=== PATIENT | female | born 1950 | race Caucasian/White ===

== ENCOUNTER 2017-08-03 17:18 | Inpatient (IN) | payer BC, OTHER ==
[~2017-08-03] VITALS: Ht 157.5 cm; Wt 59.4 kg
[2017-08-03 17:21] VITALS: BP 161/85
[2017-08-03] MEDS ORDERED: ALBUTEROL SULFATE/IPRATROPIU 3 ML SOL IH ONE ×4 (17:35→19:20)
--- NOTE | 2017-08-03 17:50 | NUR ---
67/F BIB FAMILY C/O COUGH & INTERMITTENT CHEST PAIN/SOB WITH SYNCOPAL EPISODE TODAY. DENIES TRAUMA. SPEAKING 1-2 WORD SENTENCES. CAP REFILL >3, NAIL BEDS CYANOTIC IN COLOR. PT TACHYPNIC, LS-WILLA WHEEZES. CHRONIC SMOKER X 30 YRS 1/2 DAY. DENIES N/V/D; SKIN IS PINK/WARM/DRY; AAOX4 WITH EVEN AND STEADY GAIT; LUNGS CLEAR BL; PATIENT STATES PAIN OF 5/10 AT THIS TIME.
[2017-08-03] MEDS ORDERED: methylPREDNISolone SS 125 MG in WATER STERILE 2 ML IV ONE (18:05)
[2017-08-03] MEDS ORDERED: methylPREDNISolone SS 125 MG/2 ML VIAL ONE (18:36)
--- NOTE | 2017-08-03 18:43 | NUR ---
[facility]incess nam in [facility] - 08/03/17 at 1850 by MED1 PT AMB WITH W/C TO BED 4.
[2017-08-03 18:45] LABS: BASOPHILS # (AUTO) 0.3 K/uL (0.00-0.22); BASOPHILS % (AUTO) 2.4 % (0.0-2.0); EOSINOPHILS % (AUTO) 0.3 % (0.0-4.0); HEMATOCRIT 45.1 % (36-48); HEMOGLOBIN 14.9 g/dL (12.0-16.0); LYMPHOCYTES # (AUTO) 0.9 K/uL (2.5-16.5); LYMPHOCYTES % (AUTO) 6.1 % (20.5-51.1); MEAN CORPUSCULAR HEMOGLOBIN 29 pg (27-31); MEAN CORPUSCULAR HGB CONC 33 g/dL (33-37); MEAN CORPUSCULAR VOLUME 88.2 fL (80-94); MONOCYTES # (AUTO) 0.4 K/uL (0.8-1.0); MONOCYTES % (AUTO) 2.5 % (1.7-9.3); NEUTROPHILS # (AUTO) 12.9 K/uL (1.8-7.7); NEUTROPHILS % (AUTO) 88.7 % (42.2-75.2); PLATELET COUNT (AUTO) 380 K/uL (140-450); RED BLOOD CELL COUNT(AUTO) 5.12 MIL/uL (4.20-5.40); RED CELL DISTRIBUTION WIDTH 13.2 % (11.6-13.7); WHITE BLOOD COUNT (AUTO) 14.5 K/uL (4.8-10.8)
[2017-08-03] MEDS ORDERED: ONDANSETRON 4 MG/2 ML VIAL IVP ONE (18:45)
--- NOTE | 2017-08-03 18:59 | NUR ---
PT TAKEN TO X [facility] VIA W/C ACCOMPANIED BY [employer].
[2017-08-03 19:00] LABS: PROTHROMBIN TIME 10.6 secs (10.8-13.4)
--- NOTE | 2017-08-03 19:09 | NUR ---
Pt report given to TRACI WANG. Transfer of care at this time.
[2017-08-03 19:11] LABS: ANION GAP 17.3 (8-16); CARBON DIOXIDE 24.6 mmol/L (21-32); POTASSIUM 3.9 mmol/L (3.5-5.1)
--- NOTE | 2017-08-03 19:16 | NUR ---
Critical Lab: Lactic 2.3. Dr Silva notified immediately.
[2017-08-03] MEDS ORDERED: ALBUTEROL 0.083% 2.5 MG/3 ML NEBU INH ONE (19:20)
--- NOTE | 2017-08-03 19:21 | NUR ---
Pt ambulated to bed 12
[2017-08-03 19:22] LABS: ALBUMIN 3.9 g/dL (3.4-5.0); TOTAL BILIRUBIN 0.7 mg/dL (0.0-1.0)
--- NOTE | 2017-08-03 19:31 | NUR ---
REPORT RECIEVED FROM FELIPE AVILES
[2017-08-03] MEDS ORDERED: ACETAMINOPHEN 325 MG TAB PO PRN (20:25)
[2017-08-03] MEDS ORDERED: LEVOFLOXACIN 750 MG/D5W PREMIX 150 ML IV ONE ×2 (20:30→21:43)
--- NOTE | 2017-08-03 20:58 | NUR ---
Patient will be admitted to care of DR MARQUEZ. Admited to TELE. Will go to room 120A. Belongings list completed. Report to FELIPE BLISS.
[2017-08-03 21:00] VITALS: BP 142/73
--- NOTE | 2017-08-03 21:05 | NUR ---
ADMITTED PATIENT TO THE TELE UNIT, PATIENT AWAKE ALERT ORIENTED X4, NO S/S OF DISTRESS NOTED, RESPIRATION EVEN AND UNLABORED, INTERMITTENT COUGHING STILL NOTED, O2SAT 93% ON ROOM AIR. IV PATENT AND INTACT. TELE MONITOR PLACED ON PATIENT, PLAN OF CARE DISCUSSED, PATIENT VERBALIZED UNDERSTANDING, CALL LIGHT WITHIN REACH, SAFETY MEASURE ENSURED, WILL CONTINUE TO MONITOR.
[2017-08-03] MEDS ORDERED: CLINDAMYCIN 600 MG/4 ML VIAL ONE (21:42)
[2017-08-03] MEDS: DOCUSATE SODIUM 100 MG GELCAP PO SCH (21:46)
[2017-08-03 21:47] LABS: CHOL/HDL RATIO 2.9 (1-4.5); MAGNESIUM 1.9 mg/dL (1.8-2.4); PHOSPHORUS 3.2 mg/dL (2.5-4.9); THYROID STIMULATING HORMONE 1.22 uIU/mL (0.34-3.74)
[2017-08-03] MEDS: CLINDAMYCIN 600 MG in DEXTROSE 5% 50 ML IV SCH (21:47)
--- NOTE | 2017-08-03 22:01 | NUR ---
INFORMED THE PATIENT THAT URINE SPECIMEN NEEDED AND SPECIMEN CUP IS PLACED ON THE BEDSIDE TABLE. PATIENT VERBALIZED UNDERSTANDING.
[2017-08-03] MEDS: NACL 0.9% 1,000 ML IV SCH (23:46)
[2017-08-04] VITALS: BP 148/76
--- NOTE | 2017-08-04 00:19 | NUR ---
INFORMED THE PATIENT THAT SPUTUM SPECIMEN NEEDED. PATIENT VERBALIZED UNDERSTANDING AND STATED," LEAVE ME THE CUP."
--- NOTE | 2017-08-04 02:25 | NUR ---
URINE COLLECTED AND SENT TO THE LAB. PATIENT IS SLEEPING, RESPIRATION EVEN AND UNLABORED, CALL LIGHT WITHIN REACH, SAFETY MEASURE ENSURED, WILL CONTINUE TO MONITOR.
[2017-08-04 02:45] LABS: APPEARANCE,URINE CLEAR (CLEAR); BILIRUBIN,URINE NEGATIVE (NEGATIVE); BLOOD, URINE 3+ (NEGATIVE); COLOR,URINE YELLOW (YELLOW); LEUKOCYTE ESTERASE ,URINE NEGATIVE (NEGATIVE); NITRITE, URINE NEGATIVE (NEGATIVE); PH,URINE 5.5 (5.0-9.0); UGLUCOSE NEGATIVE (NEGATIVE)
[2017-08-04 02:52] LABS: BARBITURATE, URINE NEG. ng/ml (NEG <=200); BENZODIAZEPINE, URINE NEG. ng/mL (NEG <=200); CANNABINOID, URINE NEG. ng/mL (NEG <=50); COCAINE, URINE NEG. ng/mL (NEG <=300); OPIATE, URINE NEG. ng/mL (NEG <=2000); PHENCYCLIDINE SCREEN,URINE NEG. ng/mL (NEG <=25)
[2017-08-04 03:08] LABS: RBC,URINE 3-10 (FEW) /HPF (0-5); WBC,URINE 0-5 (RARE) /HPF (0-5)
[2017-08-04 04:00] VITALS: BP 124/66
[2017-08-04] MEDS ORDERED: CLINDAMYCIN 600 MG/4 ML VIAL ONE (04:07)
[2017-08-04] MEDS: CLINDAMYCIN 600 MG in DEXTROSE 5% 50 ML IV SCH ×3 (04:14→20:51)
[2017-08-04] MEDS: methylPREDNISolone SS 125 MG/2 ML VIAL IVP SCH ×3 (04:15→20:50)
--- NOTE | 2017-08-04 04:40 | NUR ---
SPUTUM COLLECTED, AND SENT TO THE LAB. DUE MEDICATION GIVEN, PATIENT TOLERATED WELL. NO S/S OF DISTRESS NOTED, WILL CONTINUE TO MONITOR.
[2017-08-04] MEDS: ALBUTEROL SULFATE/IPRATROPIU 3 ML SOL IH SCH ×3 (06:49→19:59)
--- NOTE | 2017-08-04 07:00 | NUR ---
PATIENT AWAKE AND ALERT. SITTING UP IN BED. SCHEDULED TX ADMINISTERED. PT TOLERATED WELL. NO ADVERSE SIDE EFFECTS. INTERMITTENT, PRODUCTIVE COUGH. OTHERWISE NO RESPIRATORY DISTRESS NOTED. PRESENTS WITH WHEEZES. AERATION IMPROVED POST TX. O2 SAT 100% ON ROOM AIR. WILL CONTINUE TO MONITOR.
--- NOTE | 2017-08-04 07:15 | NUR ---
ENDORSED PLAN OF CARE TO DAY SHIFT RN. PATIENT IS IN STABLE CONDITION.
[2017-08-04 07:18] LABS: BASOPHILS # (AUTO) 0.1 K/uL (0.00-0.22); EOSINOPHILS % (AUTO) 0.1 % (0.0-4.0); HEMATOCRIT 39.6 % (36-48); HEMOGLOBIN 13.1 g/dL (12.0-16.0); LYMPHOCYTES # (AUTO) 0.4 K/uL (2.5-16.5); LYMPHOCYTES % (AUTO) 3.7 % (20.5-51.1); MEAN CORPUSCULAR HEMOGLOBIN 29 pg (27-31); MEAN CORPUSCULAR HGB CONC 33 g/dL (33-37); MEAN CORPUSCULAR VOLUME 88.2 fL (80-94); MONOCYTES # (AUTO) 0.1 K/uL (0.8-1.0); MONOCYTES % (AUTO) 0.6 % (1.7-9.3); NEUTROPHILS # (AUTO) 10.2 K/uL (1.8-7.7); NEUTROPHILS % (AUTO) 94.6 % (42.2-75.2); PLATELET COUNT (AUTO) 359 K/uL (140-450); RED BLOOD CELL COUNT(AUTO) 4.49 MIL/uL (4.20-5.40); RED CELL DISTRIBUTION WIDTH 12.9 % (11.6-13.7); WHITE BLOOD COUNT (AUTO) 10.8 K/uL (4.8-10.8)
--- NOTE | 2017-08-04 07:20 | NUR ---
RECEIVED BEDSIDE REPORT FROM REPORT PROGRAMMER NURSE. PATIENT IS AWAKE, ALERT AND ORIENTEDX4. NO SIGNS OF RESP DISTRESS ON ROOM AIR. SKIN IS INTACT. IV ON L HAND 24G INFUSING NS AT 125ML/HR. IV IS CLEAN, DRY AND INTACT. TELE MONITOR IN PLACE. FALL PRECAUTIONS IN PLACE. ALLERGY BAND IN PLACE. BED IN LOW POSITION. CALL LIGHT WITHIN REACH, WILL CONTINUE TO MONITOR PATIENT.
[2017-08-04 07:24] LABS: MAGNESIUM 1.8 mg/dL (1.8-2.4); PHOSPHORUS 3.2 mg/dL (2.5-4.9)
[2017-08-04 07:29] LABS: ANION GAP 13.3 (8-16); CARBON DIOXIDE 26.4 mmol/L (21-32); POTASSIUM 3.7 mmol/L (3.5-5.1)
[2017-08-04 08:00] VITALS: BP 133/58
[2017-08-04] MEDS: NACL 0.9% 1,000 ML IV SCH ×3 (08:24→21:58)
[2017-08-04] MEDS: LACTOBACILLUS RHAMNOSUS GG 1 EACH CAP PO SCH (08:33)
[2017-08-04] MEDS: ECOTRIN 81 MG TABEC PO SCH (08:33)
[2017-08-04] MEDS: METOPROLOL 25 MG TAB PO SCH ×2 (08:34→20:50)
[2017-08-04] MEDS: LISINOPRIL 5 MG TAB PO SCH (08:35)
[2017-08-04] MEDS: DOCUSATE SODIUM 100 MG GELCAP PO SCH ×2 (08:40→20:50)
--- NOTE | 2017-08-04 08:40 | NUR ---
ADMINISTERED MORNING MEDS. PATIENT TOLERATED MEDS WELL. NO COMPLAINTS AT THIS TIME. BED IN LOW POSITION. CALL LIGHT WITHIN REACH. WILL CONTINUE TO MONITOR PATIENT.
--- NOTE | 2017-08-04 10:09 | NUR ---
PATIENT HAS BEEN SCREENED AND CATEGORIZED LOW NUTRITION RISK. PATIENT WILL BE SEEN WITHIN 7 DAYS OF ADMISSION. 08/11/[address] Addendum: 08/04/17 at [address] PATIENT HAS BEEN RESCREENED AND RECATEGORIZED HIGH NUTRITION RISK. PATIENT WILL BE SEEN WITHIN 1-2 DAYS OF ADMISSION. 08/04/17 - 08/05/[address]
--- NOTE | 2017-08-04 11:00 | NUR ---
PATIENT IS AWAKE AND ALERT AND ORIENTEDX4. NO SIGNS OF DISTRESS ON ROOM AIR. NO COMPLAINTS AT THIS TIME. BED IN LOW POSITION. CALL LIGHT WITHIN REACH. WILL CONTINUE TO MONITOR PATIENT.
[2017-08-04 12:00] VITALS: BP 140/68
--- NOTE | 2017-08-04 12:16 | NUR ---
CALLED [facility] AND LEFT A MESSAGE. PATIENT HAS HAD MULTIPLE GASTRIC SURGERIES AND IS VERY SPECIFIC ABOUT HER FOOD. WILL AWAIT A CALL BACK. PATIENT IS REQUESTING PLAIN CHICKEN AND RICE WITH A PEANUT BUTTER SANDWICH.
--- NOTE | 2017-08-04 12:32 | NUR ---
ADMINISTERED MEDS ORDERED. PATIENT TOLERATED WELL. IV SITE IS CLEAN, DRY AND INTACT. NO COMPLAINTS AT THIS TIME. BED IN LOW POSITION. CALL LIGHT WITHIN REACH. WILL CONTINUE TO MONITOR PATIENT.
--- NOTE | 2017-08-04 13:34 | NUR ---
PATIENT RECEIVING BREATHING TX. WILL CONTINUE TO MONITOR PATIENT.
--- NOTE | 2017-08-04 13:34 | NUR ---
PATIENT AWAKE, RESTING IN BED. SCHEDULED BREATHING TX ADMINISTERED. TOLERATED TX WELL. NO ADVERSE SIDE EFFECTS. NO RESPIRATORY DISTRESS NOTED AT THIS TIME. WILL CONTINUE TO MONITOR.
--- NOTE | 2017-08-04 15:03 | NUR ---
PATIENT IS WATCHING TV SITTING IN BED. COUGHING AND VOMIT SOME OF HER LUNCH. PATIENT IS ALERT AND ORIENTEDX4. WITH NO SIGNS OF RESP DISTRESS ON ROOM AIR. BED IN LOW POSITION. CALL LIGHT WITHIN REACH,. WILL CONTINUE TO MONITOR PATIENT.
[2017-08-04 16:00] VITALS: BP 132/56
[2017-08-04] MEDS: guaiFENesin DM 200/20 MG-10 ML 10 ML UDC PO PRN (16:32)
--- NOTE | 2017-08-04 16:35 | NUR ---
ADMINISTERED PRN COUGH MEDS. PATIENT HAS NO COMPLAINTS AT THIS TIME. SITTING ON BED WITH NO SIGNS OF RESP DISTRESS ON ROOM AIR. BED IN LOW POSITION. CALL LIGHT WITHIN REACH. WILL CONTINUE TO MONITOR PATIENT.
--- NOTE | 2017-08-04 18:16 | NUR ---
FAMILY AT BED SIDE. PATIENT HAS NO COMPLAINTS AT THIS TIME. BED IN LOW POSITION. CALL LIGHT WITHIN REACH. WILL CONTINUE TO MONITOR THE PATIENT.
--- NOTE | 2017-08-04 19:10 | NUR ---
RECEIVED PATIENT REPORT AT BEDSIDE. PATIENT AWAKE, ALERT AND ORIENTED. NO S/S OF DISTRESS. PATIENT ON ROOM AIR. NO SOB AT THIS TIME. IV LINE NOTED TO THE RIGHT HAND WITH IVF INFUSING WELL. PATIENT ON TELE MONITORING. BED LOWERED WITH CALL LIGHT WITHIN REACH. WILL CONTINUE TO MONITOR
--- NOTE | 2017-08-04 19:14 | NUR ---
GAVE BEDSIDE REPORT TO STAMP PRESSER NURSE. ENDORSED PATIENT IN STABLE CONDITION.
[2017-08-04 20:00] VITALS: BP 128/56
[2017-08-05] VITALS: BP 103/54
[2017-08-05] MEDS: guaiFENesin DM 200/20 MG-10 ML 10 ML UDC PO PRN ×4 (00:11→19:55)
--- NOTE | 2017-08-05 02:11 | NUR ---
PATIENT ASLEEP IN BED. NO S/S OF DISTRESS NOTED
[2017-08-05 04:00] VITALS: BP 107/50
--- NOTE | 2017-08-05 04:00 | NUR ---
PATIENT ASLEEP IN BED. S/S OF DISTRESS
[2017-08-05] MEDS: methylPREDNISolone SS 40 MG/ML VIAL IVP SCH ×3 (05:01→21:17)
[2017-08-05] MEDS: CLINDAMYCIN 600 MG in DEXTROSE 5% 50 ML IV SCH ×3 (05:02→21:16)
[2017-08-05] MEDS: ALBUTEROL SULFATE/IPRATROPIU 3 ML SOL IH SCH ×3 (05:16→19:56)
[2017-08-05] MEDS ORDERED: MAGNESIUM CITRATE 300 ML BTL PO ONE (05:20)
[2017-08-05] MEDS ORDERED: SODIUM PHOSPHATE 118 ML ENEM RC PRN (05:20)
[2017-08-05] MEDS: ALBUTEROL SULFATE/IPRATROPIU 3 ML SOL IH PRN ×2 (06:43→16:37)
--- NOTE | 2017-08-05 06:56 | NUR ---
PATIENT AWAKE, RESTING IN BED. SCHEDULED BREATHING TX GIVEN. PATIENT TOLERATED TX WELL. NO ADVERSE SIDE EFFECTS. WILL CONTINUE TO MONITOR.
--- NOTE | 2017-08-05 07:24 | NUR ---
PATIENT REPORT GIVEN AT BEDSIDE. PATIENT ENDORSED IN STABLE CONDITION
--- NOTE | 2017-08-05 07:27 | NUR ---
RECEIVED BEDSIDE REPORT FROM PROFESSOR CRIMINAL JUSTICE NURSE. PATIENT IS AWAKE. ALERT AND ORIENTED X4. NO SIGNS OF RESP DISTRESS ON ROOM AIR. IV ON L HAND 24 G INFUSING NS AT 125ML/HR. , IV IS CLEAN, DRY AND INTACT. SKIN IS INTACT. MAG CITRATE AT BEDSIDE, PATIENT STILL DRINKING IT. WILL AWAIT IF IT WORKS FOR HER, IF NOT WILL ADMINISTER PRN FLEET ENEMA. ALLERGY BAND IN PLACE. TELE IN PLACE. BED IN LOW POSITION. CALL LIGHT WITHIN REACH, WILL CONTINUE TO MONITOR THE PATIENT.
[2017-08-05 08:00] VITALS: BP 132/63
--- NOTE | 2017-08-05 08:00 | NUR ---
PATIENT NOW ON NC AT 2L PER DOCTORS ORDER TO TITRATE OXYGEN FOR O2SAT GREATER THAN 92%. WILL CONTINUE TO MONITOR THE PATIENT.
[2017-08-05] MEDS: NACL 0.9% 1,000 ML IV SCH ×3 (08:55→23:30)
[2017-08-05] MEDS: LACTOBACILLUS RHAMNOSUS GG 1 EACH CAP PO SCH (08:55)
[2017-08-05] MEDS: ECOTRIN 81 MG TABEC PO SCH (08:56)
[2017-08-05] MEDS: METOPROLOL 25 MG TAB PO SCH ×2 (08:57→21:17)
[2017-08-05] MEDS: LISINOPRIL 5 MG TAB PO SCH (08:58)
[2017-08-05] MEDS: DOCUSATE SODIUM 100 MG GELCAP PO SCH ×2 (08:58→21:17)
--- NOTE | 2017-08-05 09:04 | NUR ---
ADMINISTERED MORNING MEDS TO PATIENT. PATIENT TOLERATED WELL. NO COMPLAINTS AT THIS TIME. WILL CONTINUE TO MONITOR THE PATIENT.
--- NOTE | 2017-08-05 11:00 | NUR ---
PATIENT HAS NO COMPLAINTS AT THIS TIME. NO SIGNS OF DISTRESS ON 2L NC. BED IN LOW POSITION. CALL LIGHT WITHIN REACH. WILL CONTINUE TO MONITOR THE PATIENT.
[2017-08-05 12:00] VITALS: BP 142/50
--- NOTE | 2017-08-05 13:08 | NUR ---
ADMINISTERED MEDS. COUGH MED NEEDED, PATIENT TOLERATED MEDS WELL. NO COMPLAINTS AT THIS TIME. WILL CONTINUE TO MONITOR THE PATIENT.
--- NOTE | 2017-08-05 14:30 | NUR ---
PATIENT IS GETTING A BREATHING TX. WILL CONTINUE TO MONITOR THE PATIENT.
--- NOTE | 2017-08-05 14:33 | NUR ---
PATIENT AWAKE, SITTING UP IN BED. TX GIVEN. PT TOLERATED TX WELL. NO ADVERSE SIDE EFFECTS. PATIENT ON 2L NC, O2 SAT 97%. PATIENT CONTINUES WITH INTERMITTENT COUGH, OTHERWISE NO DISTRESS NOTED AT THIS TIME. WILL CONTINUE TO MONITOR.
--- NOTE | 2017-08-05 14:40 | NUR ---
[facility] FAXED INITIAL AND CONCURRENT REVIEW TO HER AT [phone] PHONE GHULAM [phone].
--- NOTE | 2017-08-05 15:00 | NUR ---
PATIENT HAS NO COMPLAINTS AT THIS TIME. BED IN LOW POSITION. CALL LIGHT WITHIN REACH. WILL CONTINUE TO MONITOR THE PATIENT.
[2017-08-05 16:00] VITALS: BP 138/51
--- NOTE | 2017-08-05 16:04 | NUR ---
08/05/17 RD INITIAL ASSESSMENT COMPLETED PLEASE REFER TO NUTRITION ASSESSMENT UNDER CARE ACTIVITY FOR ESTIMATED NUTRITIONAL NEEDS. 1. CONTINUE CURRENT REGULAR DIET TOLERATED. 2. RD TO FOLLOW-UP 2-3 DAYS, HIGH RISK CRYSTAL WINSTON RD
--- NOTE | 2017-08-05 16:37 | NUR ---
PATIENT IS GETTING BREATHING TX. WILL CONTINUE TO MONITOR THE PATIENT.
--- NOTE | 2017-08-05 19:20 | NUR ---
GAVE BEDSIDE REPORT TO ENERGY PROJECTS LEAD NURSE. PATIENT IS IN STABLE CONDITION.
--- NOTE | 2017-08-05 19:30 | NUR ---
RECEIVED PT REPORT AT BEDSIDE FROM DAY SHIFT NURSE JOHN. PT AAO X4. PT IS ON NC O2 4L . NO S/S OF DISTRESS. NO SOB. NO PAIN AT THIS TIME. BED LOWERED CALL LIGHT WITHIN REACH WILL CONTINUE TO MONITOR.
[2017-08-05 20:00] VITALS: BP 101/58
[2017-08-06] VITALS: BP 133/45
--- NOTE | 2017-08-06 | NUR ---
ASSESSED PT. PT IS SLEEPING WILL CONTINUE TO MONITOR.
[2017-08-06] MEDS: guaiFENesin DM 200/20 MG-10 ML 10 ML UDC PO PRN ×2 (03:25→10:20)
[2017-08-06 04:00] VITALS: BP 165/64
[2017-08-06] MEDS: ALBUTEROL SULFATE/IPRATROPIU 3 ML SOL IH SCH ×4 (04:15→19:52)
[2017-08-06] MEDS: CLINDAMYCIN 600 MG in DEXTROSE 5% 50 ML IV SCH ×3 (04:20→20:23)
[2017-08-06] MEDS: methylPREDNISolone SS 40 MG/ML VIAL IVP SCH ×3 (04:20→20:23)
--- NOTE | 2017-08-06 05:00 | NUR ---
PT RECEIVED BREATHING TREATMENTS. AND I GAVE HER MEDICINE FOR HER COUGH. PT SITTING RESTING .
[2017-08-06 07:01] LABS: BASOPHILS % (AUTO) 0.1 % (0.0-2.0); HEMOGLOBIN 11.8 g/dL (12.0-16.0); LYMPHOCYTES # (AUTO) 0.6 K/uL (2.5-16.5); LYMPHOCYTES % (AUTO) 4.3 % (20.5-51.1); MEAN CORPUSCULAR HEMOGLOBIN 28 pg (27-31); MEAN CORPUSCULAR HGB CONC 32 g/dL (33-37); MEAN CORPUSCULAR VOLUME 89.1 fL (80-94); MONOCYTES # (AUTO) 0.5 K/uL (0.8-1.0); MONOCYTES % (AUTO) 3.7 % (1.7-9.3); NEUTROPHILS # (AUTO) 13.6 K/uL (1.8-7.7); NEUTROPHILS % (AUTO) 91.9 % (42.2-75.2); PLATELET COUNT (AUTO) 351 K/uL (140-450); RED BLOOD CELL COUNT(AUTO) 4.16 MIL/uL (4.20-5.40); RED CELL DISTRIBUTION WIDTH 14.5 % (11.6-13.7); WHITE BLOOD COUNT (AUTO) 14.8 K/uL (4.8-10.8)
[2017-08-06 07:28] LABS: MAGNESIUM 2.7 mg/dL (1.8-2.4); PHOSPHORUS 3.7 mg/dL (2.5-4.9)
[2017-08-06] MEDS: NACL 0.9% 1,000 ML IV SCH ×3 (07:30→23:34)
--- NOTE | 2017-08-06 07:35 | NUR ---
GAVE REPORT TO DAYSHIFT NURSE FOR CONTINUITY OF CARE.
--- NOTE | 2017-08-06 07:36 | NUR ---
RECEIVED REPORT FROM TRAVEL PHYSICAL THERAPIST NURSE DARRICK AT BEDSIDE FOR CONTINUITY OF CARE. PT IS AWAKE AND ORIENTED X 4. INTRODUCED SELF AND UPDATED BOARD. ON O2 NC. O2 SAT 97%. WITH PRODUCTIVE COUGH. INCENTIVE SPIROMETER AT BEDSIDE. PT GETTING BREATHING TX. TOLERATING WELL. PT DENIES PAIN. BED IN LOW POSITION, WHEELS LOCKED, CALL LIGHT WITHIN REACH. WILL CONTINUE TO MONITOR.
[2017-08-06 07:39] LABS: ANION GAP 9.2 (8-16); CARBON DIOXIDE 27.2 mmol/L (21-32); CREATININE 1.1 mg/dL (0.6-1.3); POTASSIUM 4.4 mmol/L (3.5-5.1)
[2017-08-06 08:00] VITALS: BP 147/96
[2017-08-06] MEDS: LISINOPRIL 5 MG TAB PO SCH (08:49)
[2017-08-06] MEDS: LACTOBACILLUS RHAMNOSUS GG 1 EACH CAP PO SCH (08:49)
[2017-08-06] MEDS: ECOTRIN 81 MG TABEC PO SCH (08:51)
[2017-08-06] MEDS: METOPROLOL 25 MG TAB PO SCH ×2 (08:52→20:24)
[2017-08-06] MEDS: DOCUSATE SODIUM 100 MG GELCAP PO SCH ×2 (08:52→20:23)
--- NOTE | 2017-08-06 08:55 | NUR ---
ADMINISTERED SCHEDULED MEDS. PT REFUSED COLACE. STATED SHE ALREADY HAD A BM. TOLERATED ADMIN MEDS WELL. PT WITH PRODUCTIVE COUGH. ASKED IF PT NEEDED ANYTHING ELSE NOW. PT STATED "NO." NO SIGNS OF DISTRESS. PT WATCHING TV. CALL LIGHT WITHIN REACH. WILL CONTINUE TO MONITOR.
--- NOTE | 2017-08-06 10:20 | NUR ---
PT COMPLAINED OF HEADACHE AND COUGH. ADMINISTERED TYLENOL AND ROBITUSSIN PO. PT TOLERATED WELL. WILL CONTINUE TO MONITOR.
[2017-08-06 12:00] VITALS: BP 165/72
--- NOTE | 2017-08-06 14:27 | NUR ---
CM NOTE CONCURRENT REVIEW FAXED TO / FAX# [phone], ATTN: GHULAM [phone].
[2017-08-06] MEDS: HYDROcodone/APAP 7.5/325 MG 1 TAB PO PRN (15:52)
[2017-08-06 16:00] VITALS: BP 152/78
[2017-08-06] MEDS: guaiFENesin/CODEINE 100/10MG 5 ML UDC PO PRN (17:01)
--- NOTE | 2017-08-06 17:01 | NUR ---
REPORTED TO DR. ARELLANO PT HAD UNRELIEVED PAIN ON L ABD DUE TO COUGH. ORDERED ROBITUSSIN WITH CODEINE. ADMINISTERED MED FOR COUGH. PT TOLERATED WELL. INSTRUCTED PT ON USE OF INCENTIVE SPIROMETER. PT DEMONSTRATED TEACHING WELL. NO SIGNS OF DISTRESS. WILL CONTINUE TO MONITOR.
--- NOTE | 2017-08-06 19:27 | NUR ---
ENDORSED PT TO CERTIFIED PEER SPECIALIST NURSE DARRICK AT BEDSIDE FOR CONTINUITY OF CARE. PT IN STABLE CONDITION.
--- NOTE | 2017-08-06 19:30 | NUR ---
RECEIVED PT REPORT FROM DAYSHIFT NURSE FOR CONTINUITY OF CARE. PT IS AAO X4. IV NOTED L HAND 24G NS 1250ML/HR. ON ROOM AIR. NO SOB. NO S/S OF DISTRESS. BED LOWERED CALL LIGHT WITHIN REACH. WILL CONTINUE TO MONITOR.
[2017-08-06 20:00] VITALS: BP 162/59
--- NOTE | 2017-08-06 20:30 | NUR ---
MEDICATED THE PATIENT. PT IS WEAK. WILL CONTINUE TO MONITOR.
--- NOTE | 2017-08-06 22:30 | NUR ---
SPOKE TO DR NOWAK ABOUT PT LOW HR. HE DC METOPROLOL. AND I WILL CONTINUE TO MONITOR HR.
[2017-08-07] VITALS: BP 162/63
--- NOTE | 2017-08-07 01:00 | NUR ---
PT SLEEPING WILL CONTINUE TO MONITOR. NO SOB. NO S/S OF DISTRESS. WILL CONTINUE TO MONITOR.
[2017-08-07 04:00] VITALS: BP 156/74
[2017-08-07] MEDS: methylPREDNISolone SS 40 MG/ML VIAL IVP SCH ×3 (04:53→20:52)
[2017-08-07] MEDS: CLINDAMYCIN 600 MG in DEXTROSE 5% 50 ML IV SCH ×3 (04:53→20:52)
[2017-08-07] MEDS: guaiFENesin/CODEINE 100/10MG 5 ML UDC PO PRN ×3 (05:04→20:51)
--- NOTE | 2017-08-07 06:10 | NUR ---
ASSESSED PT VITALS. PT VITALS WNL. WILL CONTINUE TO MONITOR.
--- NOTE | 2017-08-07 07:30 | NUR ---
RECEIVED REPORT FROM CAMPAIGN DIRECTOR NURSE. PT IS AWAKE, ALERT, OX4. NO S/S OF DISTRESS NOTED. O2 SAT 96% ON 2L O2 VIA NC, SKIN IS WARM AND DRY TO TOUCH, INTACT. IV TO L HAND 24G INFUSING WELL, PATENT AND INTACT. LUNG SOUNDS SHOWS WHEEZING. BOWEL SOUNDS PRESENT AND ACTIVE. INITIAL ASSESSMENT COMPLETED. PLAN OF CARE DISCUSSED WITH PT, PT VERBALIZED UNDERSTANDING. ALL SAFETY PRECAUTIONS MET, CALL LIGHT WITHIN REACH, WILL CONTINUE TO MONITOR
--- NOTE | 2017-08-07 07:35 | NUR ---
ENDORSED REPORT TO DAY SHIFT NURSE FOR CONTINUITY OF CARE.
[2017-08-07] MEDS: ALBUTEROL SULFATE/IPRATROPIU 3 ML SOL IH SCH ×4 (07:36→23:25)
[2017-08-07 08:00] VITALS: BP 147/52
[2017-08-07] MEDS: NACL 0.9% 1,000 ML IV SCH (08:19)
[2017-08-07] MEDS: LISINOPRIL 5 MG TAB PO SCH (08:41)
[2017-08-07] MEDS: ECOTRIN 81 MG TABEC PO SCH (08:41)
[2017-08-07] MEDS: LACTOBACILLUS RHAMNOSUS GG 1 EACH CAP PO SCH (08:42)
[2017-08-07] MEDS: ONDANSETRON 4 MG/2 ML VIAL IVP PRN (08:42)
[2017-08-07] MEDS: DOCUSATE SODIUM 100 MG GELCAP PO SCH ×2 (08:47→20:54)
--- NOTE | 2017-08-07 10:56 | NUR ---
PT IS SLEEPING IN BED, NO S/S OF ACUTE DISTRESS NOTED. ON 2L O2 NC.
[2017-08-07] MEDS: HYDROcodone/APAP 7.5/325 MG 1 TAB PO PRN ×2 (11:39→19:40)
[2017-08-07 12:00] VITALS: BP 155/69
--- NOTE | 2017-08-07 12:38 | NUR ---
MEDICATED WITH SOLUMED AND CLINDA SCHEDULED, IV SITE WNL, PT AUDIBLY WHEEZING, RT NOTIFIED FOR NEB TREATMENT, WILL REPORT TO PRIMARY NURSE.
--- NOTE | 2017-08-07 12:45 | NUR ---
RT AT BEDSIDE FOR NEB TREATMENT.
--- NOTE | 2017-08-07 13:23 | NUR ---
FAXED CONCURRENT REVIEW TO [facility] [phone] PHONE GHULAM [phone] IF PATIENT NEEDS HOME O2, CALL [facility], . PER GHULAM FROM [facility], NO AUTH NEEDED.
--- NOTE | 2017-08-07 13:23 | NUR ---
PT WALKED TO RESTROOM ANT SET IN RESTROOM 10 MINUTES ON ROOM AIR RETURNED TO BED SPO2 .84 ON ROOM AIR PLACED PT BACK ON 2LPM NC
--- NOTE | 2017-08-07 15:05 | NUR ---
PT WALKED WITH PHYSICAL THERAPY. ACCORDING TO PHYSICAL THERAPY, PT O2 DESAT DURING ACTIVITY. PT IS RESTING IN BED RIGHT NOW. INCREASED O2 TO 3L VIA NC. Addendum: 08/07/17 at 1520 by Keven Mcdermott RN O2 DESAT TO 86-87 DURING ACTIVITY.
--- NOTE | 2017-08-07 15:50 | NUR ---
EDUCATED PT ON IS, PT VERBALIZED UNDERSTANDING. REFUSED RETURN DEMO AT THIS TIME. PT STATED WILL DO IT LATER.
--- NOTE | 2017-08-07 15:55 | NUR ---
08/07/17 RD FOLLOW UP COMPLETED PLEASE REFER TO NUTRITION ASSESSMENT UNDER CARE ACTIVITY FOR ESTIMATED NUTRITIONAL NEEDS. 1.CONTINUE REGULAR DIET TOLERATED 2.RD FOLLOW-UP 2-3 DAYS, HIGH RISK CRYSTAL WINSTON RD
--- NOTE | 2017-08-07 16:00 | NUR ---
O2 SAT 96%, ON 3L O2 VIA NC. PT RESTING IN BED, NO S/S OF ACUTE DISTRESS. DECREASED O2 TO 2L.
[2017-08-07 16:02] VITALS: BP 141/56
--- NOTE | 2017-08-07 19:30 | NUR ---
ENDORSED PT TO BAR EXAMINER RN FOR CONTINUITY OF CARE, PT IN STABLE CONDITION.
--- NOTE | 2017-08-07 19:30 | NUR ---
RECEIVED REPORT FROM DAY SHIFT NURSE ERIN AT BEDSIDE FOR CONTINUITY OF CARE. PT AWAKE AO X4. PT IV L HAND 24G NS 25ML/HR. NO S/S OF DISTRESS. PT ON RA. NO SOB. COMPLAINTS OF PAIN AT THIS TIME.WILL MEDICATE. BED LOWERED CALL LIGHT WITHIN REACH WILL CONTINUE TO MONITOR.
[2017-08-07 20:00] VITALS: BP 124/67
--- NOTE | 2017-08-07 20:00 | NUR ---
PT HAS PAIN WILL MEDICATE
--- NOTE | 2017-08-07 22:05 | NUR ---
PT SLEEPING WILL CONTINUE TO MONITOR.
[2017-08-08] VITALS: BP 147/57
--- NOTE | 2017-08-08 00:37 | NUR ---
ASSESSED PT. PATIENT IS SLEEPING UPRIGHT. PT HAS NO SOB. NO S/S OF DISTRESS. WILL CONTINUE TO MONITOR.
--- NOTE | 2017-08-08 02:51 | NUR ---
PT IS SLEEPING. NO SOB. NO S/S OF DISTRESS. WILL CONTINUE TO MONITOR.
[2017-08-08] MEDS: ALBUTEROL SULFATE/IPRATROPIU 3 ML SOL IH SCH ×6 (03:49→23:00)
[2017-08-08 04:00] VITALS: BP 157/79
[2017-08-08] MEDS: CLINDAMYCIN 600 MG in DEXTROSE 5% 50 ML IV SCH (04:05)
[2017-08-08] MEDS: guaiFENesin/CODEINE 100/10MG 5 ML UDC PO PRN ×2 (04:05→10:38)
[2017-08-08] MEDS: methylPREDNISolone SS 40 MG/ML VIAL IVP SCH ×3 (04:05→20:27)
--- NOTE | 2017-08-08 04:10 | NUR ---
PT AWAKE AND HAVING SOB. RT IS THERE TO GIVE BREATHING TREATMENT. AFTER BREATHING TX PT IS CALM AND AWAKE. WILL CONTINUE TO MONITOR.
[2017-08-08] MEDS: BUDESONIDE 0.5 MG/2 ML NEBU INH SCH ×2 (07:00→20:13)
[2017-08-08 07:19] LABS: BASOPHILS % (AUTO) 0.1 % (0.0-2.0); HEMATOCRIT 37.8 % (36-48); HEMOGLOBIN 12.3 g/dL (12.0-16.0); LYMPHOCYTES # (AUTO) 0.5 K/uL (2.5-16.5); LYMPHOCYTES % (AUTO) 5.2 % (20.5-51.1); MEAN CORPUSCULAR HEMOGLOBIN 29 pg (27-31); MEAN CORPUSCULAR HGB CONC 32 g/dL (33-37); MEAN CORPUSCULAR VOLUME 88.9 fL (80-94); MONOCYTES # (AUTO) 0.3 K/uL (0.8-1.0); MONOCYTES % (AUTO) 3.1 % (1.7-9.3); NEUTROPHILS % (AUTO) 91.6 % (42.2-75.2); PLATELET COUNT (AUTO) 334 K/uL (140-450); RED BLOOD CELL COUNT(AUTO) 4.25 MIL/uL (4.20-5.40); WHITE BLOOD COUNT (AUTO) 9.9 K/uL (4.8-10.8)
--- NOTE | 2017-08-08 07:22 | NUR ---
RECEIVED REPORT FROM NIGHTSHIFT NURSE AT BEDSIDE. NO COMPLAINTS OF PAIN NOTED AT THIS TIME. PATIENT IS ALERT AND ORIENTED X4. NO SIGNS OF RESPIRATORY DEPRESSION. PATIENT PRESENTS IN HIGH FOWLERS POSITION AND IS RECEIVING A BREATHING TREATMENT. PATIENT HAS AN IV NOTED ON HER LEFT HAND 24G. ENCOURAGED PATIENT TO CALL IF SHE NEEDS HELP WITH AMBULATING. CALL LIGHT WITHIN REACH OF PATIENT. UPDATED BOARD IN PATIENT'S ROOM. PUT BED IN LOWEST SETTING. WILL CONTINUE TO MONITOR PATIENT.
--- NOTE | 2017-08-08 07:22 | NUR ---
GAVE REPORT TO DAY SHIFT NURSE SHADY FOR CONTINUITY OF CARE AT BEDSIDE.
[2017-08-08 07:40] LABS: ANION GAP 10.8 (8-16); CARBON DIOXIDE 28.1 mmol/L (21-32); POTASSIUM 3.9 mmol/L (3.5-5.1)
[2017-08-08 07:44] LABS: MAGNESIUM 2.1 mg/dL (1.8-2.4); PHOSPHORUS 3.9 mg/dL (2.5-4.9)
[2017-08-08 08:00] VITALS: BP 154/74
[2017-08-08] MEDS: DOCUSATE SODIUM 100 MG GELCAP PO SCH ×2 (08:08→20:24)
[2017-08-08] MEDS: LACTOBACILLUS RHAMNOSUS GG 1 EACH CAP PO SCH (08:08)
[2017-08-08] MEDS: ECOTRIN 81 MG TABEC PO SCH (08:08)
[2017-08-08] MEDS: NACL 0.9% 1,000 ML IV SCH (08:14)
--- NOTE | 2017-08-08 10:36 | NUR ---
PATIENT O2 SATURATION IS AT 90-92% ON ROOM AIR. APPLIED 2L OXYGEN TO PATIENT AND PATIENT'S OXYGEN SATURATION IS AT 94-95%
[2017-08-08] MEDS: HYDROcodone/APAP 7.5/325 MG 1 TAB PO PRN (10:38)
--- NOTE | 2017-08-08 10:58 | NUR ---
PATIENT PRESENTS WITH A PERSISTENT COUGH. PATIENT REQUESTED FOR COUGH MEDICATION. ADMINISTERED COUGH MEDICATION FOR PATIENT. VITAL SIGNS WITHIN NORMAL LIMITS. WILL CONTINUE TO MONITOR PATIENT.
[2017-08-08 12:00] VITALS: BP 143/80
--- NOTE | 2017-08-08 12:53 | NUR ---
PATIENT PRESENTS WITH NO COUGH AT THIS TIME. NO COMPLAINTS OF PAIN. WILL CONTINUE TO MONITOR PATIENT.
--- NOTE | 2017-08-08 13:16 | NUR ---
PATIENT ABLE TO AMBULATE AROUND THE TELEMETRY UNIT WITH OXYGEN. OXYGEN LEVELS AT 91-94% ON 3 LITERS NASAL CANNULA.
[2017-08-08] MEDS ORDERED: BENZONATATE 100 MG CAPLF PO PRN (13:20)
[2017-08-08] MEDS ORDERED: KETOROLAC 15 MG/ML VIAL IVP PRN (13:20)
[2017-08-08] MEDS ORDERED: MORPHINE SULFATE 4 MG/ML SYR IVP SCH (13:30)
--- NOTE | 2017-08-08 14:00 | NUR ---
PHYSICAL THERAPY CO-SIGN The Physical Therapy Progress Notes documented by Wallpaper Embosser Helper have been reviewed. I concur with the documentation of this ACID CLEANER. Plan: continue PT as per plan of care if she remains in this hospital. Reviewed/Co-Signed by: Lourdes Ignacio, PT Documentation Done by: Alexander Junior PT Addendum: 08/08/17 at 1514 by Lourdes Ignacio PT Amended: Links added.
--- NOTE | 2017-08-08 14:45 | NUR ---
PATIENT SITTING IN BED IN HIGH FOWLERS POSITION. PATIENT DOES NOT COMPLAIN OF PAIN AT THIS TIME. NO RESPIRATORY DISTRESS OR RESPIRATORY DISTRESS NOTED AT THIS TIME. WILL CONTINUE TO MONITOR PATIENT.
--- NOTE | 2017-08-08 15:32 | NUR ---
PATIENT PRESENTS WITH A COUGH. ADMINISTERED TESSALON MEDICATION TO PATIENT. WILL REASSESS PATIENT.
[2017-08-08 16:00] VITALS: BP 164/66
--- NOTE | 2017-08-08 16:42 | NUR ---
SPOKE WITH MELISSA FROM [facility] TODAY REGARDING PT'S NEED OF CONTINUOUS OXYGEN AT HOME WHEN DISCHARGE. MELISSA STATED TO FAX H&P, FACE SHEET, NURSE, PT AND RT NOTES, OXYGEN ORDER FROM ATTENDING PHYSICIAN TO FAX #[phone]. FAX CONFIRMATION RECEIVED. DR. ARELLANO NOTIFIED.
--- NOTE | 2017-08-08 17:00 | NUR ---
PATIENT PRESENTS WITH HYPERTENSION. PATIENT BLOOD PRESSURE IS AT 170/82, 81. DOCTOR FERNANDO IS AWARE. DR ROJAS PUT IN ORDERS.
--- NOTE | 2017-08-08 17:00 | NUR ---
PATIENT RESTING AT THIS TIME. NO COMPLAINTS OF PAIN OR RESPIRATORY DISTRESS. WILL CONTINUE TO MONITOR PATIENT.
[2017-08-08] MEDS ORDERED: hydrALAZINE 20 MG/ML VIAL IVP PRN (17:10)
[2017-08-08] MEDS: LISINOPRIL 10 MG TAB PO SCH (17:15)
--- NOTE | 2017-08-08 18:07 | NUR ---
MELISSA FROM HOME [facility] CALLED BACK AND STATED THEY GOT THE FAX AND WILL SEND THE PORTABLE OXYGEN AT THE PT'S BEDSIDE TOMORROW MORNING. DR. THOMSON NOTIFIED.
[2017-08-08] MEDS: ONDANSETRON 4 MG/2 ML VIAL IVP PRN (18:15)
--- NOTE | 2017-08-08 18:15 | NUR ---
PATIENT PRESENTS WITH NAUSEA. ADMINISTERED ANTI-EMETIC DRUG VIA IVP. PATIENT TOLERATED WELL. WILL REASSESS PATIENT.
--- NOTE | 2017-08-08 19:30 | NUR ---
GAVE REPORT TO NIGHTSHIFT NURSE AT BEDSIDE. PATIENT IN STABLE CONDITION.
[2017-08-08] MEDS ORDERED: LISINOPRIL 10 MG TAB ONE (19:35)
--- NOTE | 2017-08-08 19:35 | NUR ---
REMOVED LISINOPRIL 10 MG TO GIVE TO PATIENT. ENDORSED ADMINISTRATION OF LISINOPRIL TO FELIPE LUJAN. LAST BLOOD PRESSURE CHECK WAS 140/62. DID NOT ADMINISTER PATIENT'S HYDRALAZINE BECAUSE BLOOD PRESSURE IS LOWER.
--- NOTE | 2017-08-08 19:41 | NUR ---
RECEIVED FROM AM RN IN BED AWAKE AND SITTING UP . WATCHING TV AT THIS TIME. CALL LIGHT WITH IN REACH AND CARE PLANS FOR THE NIGHT DISCUSSED WITH HER. NO SOB AT THIS TIME. NO RESTLESSNESS. TELEMETRY MONITORING. ENCOURAGED TO CALL FOR ANY HELP SHE MAY NEED. DX OF SOB. 02 SAT AT THIS TIME IS 95 % ON 02 AT 3LPM/NC.
[2017-08-08 20:00] VITALS: BP 140/62
--- NOTE | 2017-08-08 22:00 | NUR ---
PT. IS AT THIS TIME STILL AWAKE AND SITTING ON THE BED. ABLE TO VERBALIZE NEEDS WELL. PT. ROM X 4. CLEAR SPEECH. ENCOURAGED TO SLEEP SO SHE CAN REST. PT. STATED SHE IS GOING HOME TOMORROW RT SHE IS BETTER NOW. ON TELEMETRY MONITORING. CALL LIGHT WITH IN REACH.
--- NOTE | 2017-08-08 23:35 | NUR ---
PT REFUSED HHNTX , SHE WANTS TO SLEEP AND HHN MAKE HER TO BRONCHOSPASM COUGHING, SHE WANTS TO WAIT UNTIL AM.
[2017-08-09 00:34] VITALS: BP 155/61
[2017-08-09] MEDS: guaiFENesin/CODEINE 100/10MG 5 ML UDC PO PRN ×2 (00:54→12:18)
[2017-08-09] MEDS: HYDROcodone/APAP 7.5/325 MG 1 TAB PO PRN (00:54)
--- NOTE | 2017-08-09 00:57 | NUR ---
PT. SITTING IN CHAIR . COMPLAINED OF COUGHING AND THAT HER SIDES HURTING BECAUSE OF TO MUCH COUGHING. MEDICATED WITH PAIN RELIEVER AND COUGH MEDICINE REQUESTED.
[2017-08-09] MEDS: ALBUTEROL SULFATE/IPRATROPIU 3 ML SOL IH SCH ×3 (03:56→11:00)
[2017-08-09 04:57] VITALS: BP 130/64
[2017-08-09] MEDS: methylPREDNISolone SS 40 MG/ML VIAL IVP SCH ×2 (05:30→12:18)
[2017-08-09] MEDS: BUDESONIDE 0.5 MG/2 ML NEBU INH SCH (06:52)
--- NOTE | 2017-08-09 07:22 | NUR ---
RECEIVED BEDSIDE REPORT FROM NIGHTSHIFT NURSE. PATIENT ALERT AND ORIENTED X4. UPDATED ON PATIENT'S CONDITION. INSTRUCTED PATIENT TO CALL IF SHE NEEDS HELP WITH ANYTHING. CALL LIGHT WITHIN REACH OF PATIENT. UPDATED BOARD IN PATIENT'S ROOM. PATIENT PRESENTS WITH NO SIGNS OF RESPIRATORY DEPRESSION. WILL CONTINUE TO MONITOR PATIENT.
[2017-08-09 08:00] VITALS: BP 165/61
[2017-08-09] MEDS: ECOTRIN 81 MG TABEC PO SCH (08:06)
[2017-08-09] MEDS: DOCUSATE SODIUM 100 MG GELCAP PO SCH (08:06)
[2017-08-09] MEDS: LISINOPRIL 10 MG TAB PO SCH (08:06)
[2017-08-09] MEDS: LACTOBACILLUS RHAMNOSUS GG 1 EACH CAP PO SCH (08:06)
[2017-08-09 08:20] LABS: BASOPHILS % (AUTO) 0.2 % (0.0-2.0); HEMATOCRIT 38.7 % (36-48); HEMOGLOBIN 12.4 g/dL (12.0-16.0); LYMPHOCYTES # (AUTO) 0.8 K/uL (2.5-16.5); LYMPHOCYTES % (AUTO) 7.3 % (20.5-51.1); MEAN CORPUSCULAR HEMOGLOBIN 28 pg (27-31); MEAN CORPUSCULAR HGB CONC 32 g/dL (33-37); MEAN CORPUSCULAR VOLUME 89.1 fL (80-94); MONOCYTES # (AUTO) 0.6 K/uL (0.8-1.0); MONOCYTES % (AUTO) 5.4 % (1.7-9.3); NEUTROPHILS # (AUTO) 9.6 K/uL (1.8-7.7); NEUTROPHILS % (AUTO) 87.1 % (42.2-75.2); PLATELET COUNT (AUTO) 334 K/uL (140-450); RED BLOOD CELL COUNT(AUTO) 4.35 MIL/uL (4.20-5.40); RED CELL DISTRIBUTION WIDTH 14.1 % (11.6-13.7)
[2017-08-09 08:43] LABS: ANION GAP 8.8 (8-16); CARBON DIOXIDE 32.4 mmol/L (21-32); POTASSIUM 4.2 mmol/L (3.5-5.1)
[2017-08-09 08:56] LABS: MAGNESIUM 2.1 mg/dL (1.8-2.4); PHOSPHORUS 3.4 mg/dL (2.5-4.9)
--- NOTE | 2017-08-09 09:00 | NUR ---
PATIENT BLOOD PRESSURE DROPPED DOWN TO 132/65, 68 HR. PATIENT IN STABLE CONDITION.
--- NOTE | 2017-08-09 11:02 | NUR ---
RECEIVED A CALL FROM FLAG SIGNALMAN JENNIFER. FLAG SIGNALMAN SAID SHE'LL CALL SALESPERSON [employer] FOR PATIENT'S INSURANCE. FLAG SIGNALMAN WILL KEEP ME UPDATED. WILL NOTIFY DOCTOR ONCE SOCIAL WORKERS GET IN CONTACT WITH UTILITY ARBORIST.
--- NOTE | 2017-08-09 11:25 | NUR ---
SPOKE TO JENNIFER WOOD HEEL FLAP TRIMMER REGARDING PATIENT. PATIENT REFUSED HOME HEALTH PHYSICAL THERAPY SERVICES. WILL NOTIFY DOCTOR.
--- NOTE | 2017-08-09 11:32 | NUR ---
08/09/17 RD FOLLOW UP COMPLETED PLEASE REFER TO NUTRITION PROGRESS NOTE UNDER CARE ACTIVITY FOR ESTIMATED NUTRITION NEEDS. RD RECOMMENDATIONS: 1. CONTINUE REGULAR DIET TOLERATED 2. ADD DIET HS TID WITH MEALS TO HELP MEET ENERGY, PROTEIN, & FLUID ESTIMATED NEEDS. 3. RD FOLLOW-UP 2-3 DAYS, HIGH RISK ZAHEER HOPE MBA,RD
--- NOTE | 2017-08-09 11:35 | NUR ---
Social Service Note: I met with patient at bedside. Per patient, she was informed by physician she would benefit from home health services for physical therapy. She stated she does not want to home health services, she reported she can do physical therapy on her own, patient's nurse Tha made aware. Per Molina from [facility] , they are contracted with [facility] , fax .
--- NOTE | 2017-08-09 11:46 | NUR ---
PT SAYAS SHE IS GOING HOME AND DOSE NOT WANT RX RN AWARE NO RESP DISTRESS NOTED
--- NOTE | 2017-08-09 11:56 | NUR ---
PATIENT'S OXYGEN TANK WAS DELIVERED AT BEDSIDE BY [facility]. PATIENT MADE AWARE OF HOW TO USE THE OXYGEN.
[2017-08-09 12:00] VITALS: BP 168/85
--- NOTE | 2017-08-09 12:22 | NUR ---
GAVE PATIENT HYDRALAZINE .5 ML/10 MG TO PATIENT FOR BLOOD PRESSURE 171/75,69. ALSO GAVE COUGH MEDICINE FOR PATIENT'S COUGH. PATIENT TOLERATED WELL. WILL REASSESS AND MONITOR PATIENT.
--- NOTE | 2017-08-09 13:22 | NUR ---
REASSESSED PATIENT'S BLOOD PRESSURE. PATIENT'S BLOOD PRESSURE IS 163/70, 76 HR. DOCTOR FERNANDO SAID THE BLOOD PRESSURE MAY BE ELEVATED DUE TO THE CONSTANT COUGHING. WILL CONTINUE TO MONITOR PATIENT.
--- NOTE | 2017-08-09 15:20 | NUR ---
PATIENT SLEEPING IN BED. WILL CONTINUE TO MONITOR PATIENT.
[2017-08-09 16:00] VITALS: BP 164/82
[2017-08-09] MEDS ORDERED: LISINOPRIL 10 MG TAB PO ONE (16:30)
[2017-08-09] MEDS ORDERED: LISI-420 PO (17:00)
[2017-08-09] MEDS ORDERED: METH4TAB1 PO (17:01)
[2017-08-09] MEDS ORDERED: ELA25 PO (17:03)
[2017-08-09] MEDS ORDERED: FLUT1DSK2 IH ×2 (17:03→17:18)
[2017-08-09] MEDS ORDERED: ACET-9529 PO (17:04)
[2017-08-09] MEDS ORDERED: ALBU0.0912 IH (17:18)
--- NOTE | 2017-08-09 17:24 | NUR ---
PATIENT'S BLOOD PRESSURE IS 165/73, [address] KING IS AWARE.
[2017-08-09] MEDS ORDERED: ONDA4TAB PO (18:10)
--- NOTE | 2017-08-09 18:50 | NUR ---
PATIENT IS AWARE OF ALL PRESCRIPTIONS FROM DR. PATIENT SIGNED AND VERBALIZED UNDERSTANDING OF ALL DISCHARGE INSTRUCTIONS. DISCONTINUED PATIENT'S INTRAVENOUS LINE WITH CATHETER INTACT. PATIENT HOOKED UP TO OXYGEN TANK AT 3 LITERS VIA NC. CUT OFF ALL PATIENT'S IDENTIFICATION BANDS. PATIENT LEFT WITH FAMILY MEMBERS WITH ALL BELONGINGS. PATIENT LEFT IN STABLE CONDITION.
[2017-08-10] MEDS ORDERED: LISINOPRIL 20 MG TAB PO SCH (09:00)
== END 2017-08-09 18:50 | disposition home or self-care (01) | DRG 871 ==
LOC: MED 17:18 → MTU 20:11
PROVIDERS: ADMIT Family Medicine Sports Medicine; ATTEND Family Medicine Sports Medicine
DX: A41.9 Sepsis, unspecified organism (principal); J69.0 Pneumonitis due to inhalation of food and vomit; J96.01 Acute respiratory failure with hypoxia; N17.0 Acute kidney failure with tubular necrosis; E87.1 Hypo-osmolality and hyponatremia; J44.1 Chronic obstructive pulmonary disease with (acute) exacerbation; N39.0 Urinary tract infection, site not specified; J84.9 Interstitial pulmonary disease, unspecified; R65.20 Severe sepsis without septic shock; M94.0 Chondrocostal junction syndrome [Tietze]; E86.0 Dehydration; F17.200 Nicotine dependence, unspecified, uncomplicated; R31.9 Hematuria, unspecified; E11.9 Type 2 diabetes mellitus without complications; K59.00 Constipation, unspecified; J44.9 Chronic obstructive pulmonary disease, unspecified; Z91.041 Radiographic dye allergy status; Z98.891 History of uterine scar from previous surgery; Z79.899 Other long term (current) drug therapy
CPT/HCPCS: 36415; 71045; 71250; 74018; 76770; 78582; 80048; 80053; 80305; 81001; 82150; 83036; 83605; 83690; 83735; 83880; 84100; 84439; 84443; 84484; 85025; 85610; 85730; 87040; 87070; 87081; 87086; 87205; 87804; 93005; 93970; 94640; 96374; 97110; 97116; 97530; 99285; A9540; J0360; J1956; J2270; J2405; J2920; J2930; J3490; J7030; J7060; J7613; J7620; J7626; Q0092

== ENCOUNTER 2021-04-29 08:12 | Inpatient (IN) | payer OTHER, SELFPAY ==
[~2021-04-29] VITALS: Ht 157.5 cm; Wt 59.4 kg
[~2021-04-29 08:12] MED LIST: ACET-9529 PO; ALBU0.0912 IH; AMIT25TA40 PO; FLUT1DSK2 IH; LISI-487 PO; METH4TAB1 PO; ONDA4TAB PO
--- NOTE | 2021-04-29 08:15 | NUR ---
pt was wheelchair assisted to bed 12
[2021-04-29 08:21] VITALS: BP 114/78
--- NOTE | 2021-04-29 08:50 | NUR ---
71 y/o F BIB self from home c/o chronic abdominal pain and nausea vomiting x 2-3 days. Patient A&Ox4, ambulatory, reports worsening abdominal pain for 3 days and reports vomiting 8 episodes of "light red" blood prior to arrival. Pt states 10/10, burning/constant, non-radiating pain to LLQ. Patient states R-sided chest pain 8/10, throbbing/constant, non-radiating pain. Pt denies dysuria, fever, chills, headache, low back pain. Denies medications prior to arrival. 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 LLQ soft/tender to palpation. Bed locked in lowest position, side rails x 2. PMH: HTN, COPD Meds: lisinopril A: iodine Sx: "16 intestinal surgeries from a botched surgery." 2 hernia repairs
--- NOTE | 2021-04-29 08:55 | NUR ---
Dr. Browne is evaluating pt at bedside
[2021-04-29] MEDS ORDERED: MORPHINE SULFATE 4 MG/ML SYR IVP ONE ×2 (09:00→13:45)
[2021-04-29] MEDS ORDERED: ONDANSETRON 4 MG/2 ML VIAL IVP ONE (09:00)
--- NOTE | 2021-04-29 09:25 | NUR ---
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
--- NOTE | 2021-04-29 09:25 | NUR ---
UNABLE TO OBTAIN COMPLETE 12 LEAD EKG AT THIS TIME D/T V4 NOT-READING. WILL REATTEMPT AFTER CT; DR. DEL VALLE MADE AWARE.
[2021-04-29 09:39] LABS: BASOPHILS # (AUTO) 0.1 K/uL (0.00-0.22); BASOPHILS % (AUTO) 0.5 % (0.0-2.0); EOSINOPHILS % (AUTO) 0.2 % (0.0-4.0); HEMATOCRIT 47.7 % (36-48); HEMOGLOBIN 15.9 g/dL (12.0-16.0); LYMPHOCYTES # (AUTO) 1.6 K/uL (2.5-16.5); LYMPHOCYTES % (AUTO) 8.9 % (20.5-51.1); MEAN CORPUSCULAR HEMOGLOBIN 30 pg (27-31); MEAN CORPUSCULAR HGB CONC 33 g/dL (33-37); MEAN CORPUSCULAR VOLUME 89.4 fL (80-94); MONOCYTES # (AUTO) 0.9 K/uL (0.8-1.0); NEUTROPHILS # (AUTO) 15.7 K/uL (1.8-7.7); NEUTROPHILS % (AUTO) 85.4 % (42.2-75.2); PLATELET COUNT (AUTO) 483 K/uL (140-450); RED BLOOD CELL COUNT(AUTO) 5.33 MIL/uL (4.20-5.40); RED CELL DISTRIBUTION WIDTH 14.5 % (11.6-13.7); WHITE BLOOD COUNT (AUTO) 18.3 K/uL (4.8-10.8)
--- NOTE | 2021-04-29 09:40 | NUR ---
PT returned from ct by flakita. Placed back on business development professional.
[2021-04-29 09:54] LABS: ALBUMIN 3.7 g/dL (3.4-5.0); ANION GAP 16.6 (8-16); ASPARTATE AMINOTRANSFERASE 52 U/L (15-37); CARBON DIOXIDE 25.1 mmol/L (21-32); CHLORIDE 100 mmol/L (98-107); CREATININE 1.2 mg/dL (0.6-1.3); GLUCOSE 129 mg/dL (74-106); LIPASE 56 U/L (73-393); POTASSIUM 4.7 mmol/L (3.5-5.1); SODIUM SERUM 137 mmol/L (136-145); TOTAL BILIRUBIN 0.9 mg/dL (0.0-1.0); UREA NITROGEN, BLOOD 19 mg/dL (7-18)
[2021-04-29] MEDS ORDERED: NACL 0.9% 1,000 ML IV ONE (10:25)
[2021-04-29] MEDS ORDERED: PANTOPRAZOLE 40 MG INJ VIAL IVP ONE (10:25)
[2021-04-29 10:41] LABS: APPEARANCE,URINE CLEAR (CLEAR); BILIRUBIN,URINE NEGATIVE (NEGATIVE); BLOOD, URINE NEGATIVE (NEGATIVE); COLOR,URINE AMBER (YELLOW); LEUKOCYTE ESTERASE ,URINE NEGATIVE (NEGATIVE); NITRITE, URINE NEGATIVE (NEGATIVE); PH,URINE 8.5 (5.0-9.0); UGLUCOSE NEGATIVE (NEGATIVE)
--- NOTE | 2021-04-29 10:49 | NUR ---
PT COMPLAINING OF PAIN ON IV SITE. REDNESS NOTED AROUND SITE. IV 20 GAUGE RIGHT FOREAREM DISCONTINUED. NEW IV INSERTED 20 JONAS ON LEFT FOREARM. WILL CONTINUE TO MONITOR.
[2021-04-29] MEDS ORDERED: PANTOPRAZOLE 40 MG INJ VIAL ONE (11:28)
--- NOTE | 2021-04-29 12:00 | NUR ---
AUTUMN SWAB COLLECTED AND DROPPED OFF AT LAB.
--- NOTE | 2021-04-29 13:02 | NUR ---
Pt off cardiac monitor technician and ambulated to restroom with steady/even gait.
[2021-04-29] MEDS ORDERED: LISI-486 PO (13:27)
--- NOTE | 2021-04-29 13:43 | NUR ---
Patient reports 10/[address] Browne made aware and verbal order received for Morphine 4mg IVP.
--- NOTE | 2021-04-29 17:38 | NUR ---
PATIENT IS COMPLAINING OF 4/10 PAIN IN ABDOMEN. PATIENT IS SITTING UP RIGHT IN BED. SIDERAILS UP. WILL CONTINUE TO MONITOR.
--- NOTE | 2021-04-29 18:06 | NUR ---
PATIENTS DAUGHTER IN LAW CALLED FOR UPDATE. ALL QUESTIONS ANSWERED AT THIS TIME. CONTACT INFO: MARANDA CROWE (DAUGHTER IN LAW):
--- NOTE | 2021-04-29 19:30 | NUR ---
PT REPORT RECEIVED FROM FELIPE GALLEGOS FOR CONTINUITY OF PT CARE AT THIS TIME.
--- NOTE | 2021-04-29 19:30 | NUR ---
Report and transfer of care endorsed to FELIPE Levin.
--- NOTE | 2021-04-29 19:35 | NUR ---
PT LAYING IN BED SUPINE W HOB ELEVATED. BED LOCKED IN LOWEST POSITION W X2 SIDERAILS UP FOR PT SAFETY. PT C/O MILD ABDOMINAL PAIN, NO NAUSEA AT THIS TIME. PT VSS, BREATHING EVEN AND UNLABORED, NAD NOTED, WILL CONTINUE TO MONITOR.
--- NOTE | 2021-04-29 19:38 | NUR ---
PT AMBULATED TO BATHROOM W STEADY GAIT.
--- NOTE | 2021-04-29 20:55 | NUR ---
PT AMBULATED TO BATHROOM W STEADY GAIT.
--- NOTE | 2021-04-29 23:38 | NUR ---
PT AMBULATED TO BATHROOM W STEADY AGIT.
--- NOTE | 2021-04-30 00:07 | NUR ---
PT W C/O OF 12/28 ABDOMINAL PAIN AND NAUSEA ERMD MADE AWARE. VSS. PT LAYING IN BED LOCKED IN LOWEST POSITION W X2 SIDERAILS UP. BREATHING EVEN AND UNLABORED, NAD NOTED, WILL CONTINUE TO MONITOR.
[2021-04-30] MEDS ORDERED: MORPHINE SULFATE 2 MG/ML SYR IVP ONE (00:35)
[2021-04-30] MEDS ORDERED: ONDANSETRON 4 MG/2 ML VIAL IVP ONE ×2 (00:35→09:20)
--- NOTE | 2021-04-30 01:49 | NUR ---
PT APPEARS TO BE RESTING W EYES CLOSED IN SUPINE POSITION. BED LOCKED IN LOWEST POSITION W X2 SIDERAILS UP FOR PT SAFETY. VSS. BREATHING EVEN AND UNLABORED. NAD NOTED, WILL CONTINUE TO MONITOR.
--- NOTE | 2021-04-30 04:00 | NUR ---
PT APPEARS TO BE RESTING W EYES CLOSED IN R LATERAL/SUPINE POSITION. HOB ELEVATED, BED LOCKED IN LOWEST POSITION W X2 SIDERAILS UP FOR PT SAFETY. VSS. BREATHING EVEN AND UNLABORED. NAD NOTED, WILL CONTINUE TO MONITOR.
--- NOTE | 2021-04-30 06:15 | NUR ---
PT AMBULATED TO BATHROOM W STEADY GAIT.
--- NOTE | 2021-04-30 07:15 | NUR ---
Pt report given to FELIPE RIOS. Transfer of care at this time.
--- NOTE | 2021-04-30 07:25 | NUR ---
RECEIVED REPORT FROM FELIPE URENA. ASSUMED CARE AT THIS TIME.
--- NOTE | 2021-04-30 07:45 | NUR ---
PATIENT RESTING IN BED WITH EYES OPEN, DENIES PAIN AT THIS TIME. ON BEDSIDE MICROGRINDER OPERATOR, ALL NEEDS MET AT THIS TIME.
--- NOTE | 2021-04-30 09:19 | NUR ---
PATIENT DISCONNECTED FROM VISION IMPAIRED TEACHER TO USE RESTROOM, PATIENT AMBULATORY WITH STEADY GAIT.
[2021-04-30] MEDS ORDERED: MORPHINE SULFATE 4 MG/ML SYR IVP ONE (09:20)
[2021-04-30] MEDS ORDERED: ONDANSETRON 4 MG/2 ML VIAL IVP PRN (13:25)
[2021-04-30] MEDS ORDERED: MAG SULF 2000 MG/WATER PREMIX 50 ML IV PRN (13:25)
[2021-04-30] MEDS ORDERED: MAGNESIUM OXIDE 400 MG TAB PO PRN (13:25)
[2021-04-30] MEDS ORDERED: POTASSIUM CHLORIDE 10 MEQ TABER PO PRN (13:25)
[2021-04-30] MEDS ORDERED: METOCLOPRAMIDE 10 MG/2 ML INJ VIAL IVP PRN (13:25)
--- NOTE | 2021-04-30 13:58 | NUR ---
PATIENT NOT TOLERATING NG TUBE, REFUSING INSERTION AT THIS TIME.
--- NOTE | 2021-04-30 17:00 | NUR ---
PATIENT DISCONNECTED FROM COOK PICKLED MEAT, AMBULATED TO RESTROOM WITH STEADY GAIT.
--- NOTE | 2021-04-30 19:05 | NUR ---
PATIENT C/O 11/27 PAIN MEDICATED PRN MORPHINE IVP ORDERED.
[2021-04-30] MEDS: MORPHINE SULFATE 4 MG/ML SYR IVP PRN (19:09)
--- NOTE | 2021-04-30 19:30 | NUR ---
PT REPORT RECEIVED FROM FELIPE RIOS FOR CONTINUITY OF PT CARE AT THIS TIME.
--- NOTE | 2021-04-30 19:32 | NUR ---
PT LAYING IN BED SUPINE POSITION W X2 SIDERAILS UP FOR PT SAFETY. PT REPORTS MILD ABD PAIN HAS JUST BEEN MEDICATED FOR IT. PT DENIES OTHER SYMPTOMS. PT VSS. ALL NEEDS MET AT THIS TIME.
--- NOTE | 2021-04-30 19:33 | NUR ---
Pt report given to FELIPE URENA. Transfer of care at this time.
--- NOTE | 2021-04-30 19:34 | NUR ---
PT AMBULATED TO BATHROOM W STEADY GAIT.
--- NOTE | 2021-04-30 22:35 | NUR ---
placed patient on 2L nc as patient was trending at 75% for roughly about a minute with proper wave form. patient was complaining of difficulty breathing and trouble catching for air.
--- NOTE | 2021-04-30 23:07 | NUR ---
Pt report given to FELIPE Hager. Transfer of care at this time.
--- NOTE | 2021-04-30 23:16 | NUR ---
Patient will be admitted to care of . Admited to MED/SURG. Will go to [id number]. Belongings list completed. Report to FELIPE MAR.
--- NOTE | 2021-04-30 23:25 | NUR ---
Patient received from ER arrived via WC with attendant. Patient is A&Ox4 able to make needs known, denies chest pain or SOB. Chest Rise is even and unlabored CTA on 2L NC. Normal heart sounds present. Hypo active bowel sounds on auscultation, some distention noted, states there is some tenderness with palpation 5/10. Patient denies any problem with urination, reports N/V. PIV is present on LFA 20G Patent without s/s of infiltration. Patient skin is intact and free of open wounds. Patient has been orientated to room, bathroom, staff, how to use the call light. Call light is within reach, bed is locked, in the lowest position with bed rails up. Will continue to monitor throughout shift.
[2021-05-01] VITALS: BP 143/40
[2021-05-01 04:00] VITALS: BP 121/58
[2021-05-01] MEDS: MORPHINE SULFATE 4 MG/ML SYR IVP PRN ×2 (06:33→15:59)
--- NOTE | 2021-05-01 06:39 | NUR ---
Patient received morphine at 0620am and reported pain at 8/10 at her abdomen. Patient is currently resting and denies any chest discomfort or SOB. Patient is currently NPO for pending procedure. Call light is within reach, bed is locked in the lowest position, with bed rails up. Will differ further care to AM shift nurse for continuity of care.
--- NOTE | 2021-05-01 07:15 | NUR ---
RECEIVED PATIENT FROM THREAD WEAVER NURSE FOR CONTINUITY OF CARE. PATIENT IS A/A/O X4. RESPIRATORY EVEN AND UNLABORED, ON 2L OXYGEN VIA NC. SKIN WARM, DRY, NON DIAPHORETIC. IV ON LEFT FA 20G, INTACT AND PATENT, SALINE LOCK. BOWEL SOUND HYPOACTIVE, TENDER WITH PALPATION. PATIENT ABLE TO MAKE NEED KNOWN. PLAN OF CARE DISCUSSED, PATIENT VERBALIZED UNDERSTANDING. PRECAUTION IN PLACE. CALL LIGHT WITHIN REACH. WILL CONTINUE TO MONITOR.
[2021-05-01 07:35] LABS: ANION GAP 10.6 (8-16); CARBON DIOXIDE 28.1 mmol/L (21-32); CHLORIDE 103 mmol/L (98-107); GLUCOSE 69 mg/dL (74-106); POTASSIUM 3.7 mmol/L (3.5-5.1); SODIUM SERUM 138 mmol/L (136-145); UREA NITROGEN, BLOOD 20 mg/dL (7-18)
[2021-05-01 08:00] VITALS: BP 106/52
--- NOTE | 2021-05-01 08:51 | NUR ---
PATIENT HAS BEEN SCREENED AND CATEGORIZED HIGH NUTRITION RISK. PATIENT WILL BE SEEN WITHIN 1-2 DAYS OF ADMISSION. / REFERRAL RECEIVED FOR NAUSEA/VOMITING/REFUSE TO EAT OVER [address]
[2021-05-01] MEDS: PANTOPRAZOLE 40 MG INJ VIAL IVP SCH (09:10)
[2021-05-01] MEDS: ENOXAPARIN 40 MG/0.4 ML SYR SUBQ SCH (09:10)
--- NOTE | 2021-05-01 09:10 | NUR ---
SCHEDULE MEDICATIONS GIVEN WITH EDUCATION, PATIENT VERBALIZED UNDERSTANDING. PATIENT TOLERATED WELL. PRECAUTION IN PLACE. CALL LIGHT WITHIN REACH. WILL CONTINUE TO MONITOR.
[2021-05-01 09:21] LABS: BASOPHILS # (AUTO) 0.1 K/uL (0.00-0.22); BASOPHILS % (AUTO) 0.8 % (0.0-2.0); EOSINOPHILS # (AUTO) 0.2 K/uL (0-0.4); EOSINOPHILS % (AUTO) 2.4 % (0.0-4.0); HEMATOCRIT 38.5 % (36-48); HEMOGLOBIN 12.5 g/dL (12.0-16.0); LYMPHOCYTES # (AUTO) 1.5 K/uL (2.5-16.5); LYMPHOCYTES % (AUTO) 19.4 % (20.5-51.1); MEAN CORPUSCULAR HEMOGLOBIN 30 pg (27-31); MEAN CORPUSCULAR HGB CONC 32 g/dL (33-37); MEAN CORPUSCULAR VOLUME 91.6 fL (80-94); MONOCYTES # (AUTO) 0.6 K/uL (0.8-1.0); NEUTROPHILS # (AUTO) 5.5 K/uL (1.8-7.7); NEUTROPHILS % (AUTO) 70.4 % (42.2-75.2); PLATELET COUNT (AUTO) 334 K/uL (140-450); RED CELL DISTRIBUTION WIDTH 14.6 % (11.6-13.7); WHITE BLOOD COUNT (AUTO) 7.8 K/uL (4.8-10.8)
--- NOTE | 2021-05-01 11:20 | NUR ---
PATIENT IS AWAKE, RESTING IN BED, NO SIGN OF DISTRESS NOTED. PRECAUTION IN PLACE. CALL LIGHT WITHIN REACH. WILL CONTINUE TO MONITOR.
[2021-05-01] MEDS: PIPERACILLIN/TAZOBACTAM 3.375 GM in DEXTROSE 5% 50 ML IV SCH ×2 (13:08→22:36)
--- NOTE | 2021-05-01 13:20 | NUR ---
PATIENT IS RESTING IN BED, AROUSABLE TO VOICE. NO SIGN OF DISTRESS NOTED. PRECAUTION IN PLACE. CALL LIGHT WITHIN REACH. WILL CONTINUE TO MONITOR.
--- NOTE | 2021-05-01 15:59 | NUR ---
PATIENT COMPLAINS PAIN 9/10 ABD. PRN MEDICATION GIVEN WITH EDUCATION. PATIENT TOLERATED WELL. NO SIGN OF DISTRESS NOTED. PRECAUTION IN PLACE. CALL LIGHT WITHIN REACH. WILL CONTINUE TO MONITOR.
[2021-05-01 16:00] VITALS: BP 128/60
--- NOTE | 2021-05-01 17:55 | NUR ---
PATIENT IS AWAKE, RESTING IN BED, NO SIGN OF DISTRESS NOTED. PRECAUTION IN PLACE. CALL LIGHT WITHIN REACH. WILL CONTINUE TO MONITOR.
--- NOTE | 2021-05-01 19:30 | NUR ---
ENDORSED PATIENT TO ELEMENT SETTER NURSE FOR CONTINUITY OF CARE. PATIENT IS STABLE.
--- NOTE | 2021-05-01 19:31 | NUR ---
RECD. RESTING IN BED, AWAKE, A/OX4. ON 02 AT 2 LITERS VIA N/C. RESPIRATION EVEN AND UNLABORED. IV SALINE LOCK AT THE LEFT FOREARM G20, RIGHT HAND G24, PATENT AND INTACT. AMBULATORY TO THE BR. TOLERATING WELL FULL LIQUID DIET. ON IV ANTIBIOTICS. DENIES PAIN 0/10.
[2021-05-01 20:00] VITALS: BP 116/42
--- NOTE | 2021-05-01 20:00 | NUR ---
Patient's Plan of Care was discussed and reviewed with AUDIOLOGY DOCTOR: BOBBI WHITLEY
--- NOTE | 2021-05-01 21:00 | NUR ---
VERBALIZED HAVING LOOSE BM, SMALL AMOUNT. ENCOURAGED TO INCREASE FLUID INTAKE.
--- NOTE | 2021-05-02 | NUR ---
SLEEPING COMFORTABLY IN BED, RESPIRATION EVEN AND UNLABORED. CALL LIGHT IN REACH.
--- NOTE | 2021-05-02 02:00 | NUR ---
AMBULATED TO BR TO HAVE BM. BACK TO BED, SAFETY MAINTAINED.
[2021-05-02] MEDS: HYDROcodone/APAP 5/325 MG 1 TAB TAB PO PRN (03:21)
[2021-05-02 04:00] VITALS: BP 101/38
--- NOTE | 2021-05-02 04:00 | NUR ---
VERBALIZED WANTS TO SPEAK WITH MD TO DISCUSS HER ON AND OFF PAINS IN THE LEFT GROIN RADIATING DOWNWARD TO HER LOWER EXTREMITY. ADVISED TO SPEAK WITH MD WHEN THEY WILL MAKE ROUNDS TODAY.
[2021-05-02] MEDS: PIPERACILLIN/TAZOBACTAM 3.375 GM in DEXTROSE 5% 50 ML IV SCH ×3 (05:04→21:34)
--- NOTE | 2021-05-02 07:29 | NUR ---
CONDITION REMAIN STABLE. ENDORSED TO AM SHIFT NURSE FOR CONTINUITY OF CARE.
--- NOTE | 2021-05-02 07:30 | NUR ---
RECEIVED PATIENT FROM PROGRAMMER BUSINESS NURSE FOR CONTINUITY OF CARE. PATIENT IS WAKE, RESTING IN BED. RESPIRATORY EVEN AND UNLABORED, ON 2L OXYGEN INTERMITTENT. NO SIGN OF DISTRESS NOTED. SKIN WARM, DRY, NON DIAPHORETIC. IV ON RIGHT HAND 24G, INTACT AND PATENT, SALINE LOCK. PATIENT ABLE TO MAKE NEED KNOWN. PLAN OF CARE DISCUSSED, PATIENT VERBALIZED UNDERSTANDING. PRECAUTION IN PLACE. CALL LIGHT WITHIN REACH. WILL CONTINUE TO MONITOR.
[2021-05-02 08:00] VITALS: BP 114/57
[2021-05-02 08:16] LABS: BASOPHILS % (AUTO) 0.7 % (0.0-2.0); EOSINOPHILS # (AUTO) 0.2 K/uL (0-0.4); EOSINOPHILS % (AUTO) 2.6 % (0.0-4.0); HEMATOCRIT 38.9 % (36-48); LYMPHOCYTES # (AUTO) 1.2 K/uL (2.5-16.5); LYMPHOCYTES % (AUTO) 17.3 % (20.5-51.1); MEAN CORPUSCULAR HEMOGLOBIN 30 pg (27-31); MEAN CORPUSCULAR HGB CONC 34 g/dL (33-37); MONOCYTES # (AUTO) 0.6 K/uL (0.8-1.0); MONOCYTES % (AUTO) 8.5 % (1.7-9.3); NEUTROPHILS # (AUTO) 4.9 K/uL (1.8-7.7); NEUTROPHILS % (AUTO) 70.9 % (42.2-75.2); PLATELET COUNT (AUTO) 362 K/uL (140-450); RED BLOOD CELL COUNT(AUTO) 4.32 MIL/uL (4.20-5.40); WHITE BLOOD COUNT (AUTO) 6.9 K/uL (4.8-10.8)
[2021-05-02] MEDS: PANTOPRAZOLE 40 MG INJ VIAL IVP SCH (09:35)
--- NOTE | 2021-05-02 09:35 | NUR ---
SCHEDULE MEDICATIONS GIVEN WITH EDUCATION. PATIENT VERBALIZED UNDERSTANDING. PATIENT TOLERATED WELL. NO SIGN OF DISTRESS NOTED. PRECAUTION IN PLACE. CALL LIGHT WITHIN REACH. WILL CONTINUE TO MONITOR.
[2021-05-02] MEDS: ENOXAPARIN 40 MG/0.4 ML SYR SUBQ SCH (09:36)
[2021-05-02 10:28] LABS: ANION GAP 12.3 (8-16); CARBON DIOXIDE 27.9 mmol/L (21-32); CHLORIDE 102 mmol/L (98-107); CREATININE 1.1 mg/dL (0.6-1.3); GLUCOSE 115 mg/dL (74-106); POTASSIUM 4.2 mmol/L (3.5-5.1); SODIUM SERUM 138 mmol/L (136-145); UREA NITROGEN, BLOOD 17 mg/dL (7-18)
--- NOTE | 2021-05-02 11:04 | NUR ---
DC PLANNING: CM SPOKE WITH MOOKIE YANG FOR [facility], CLINICAL REVIEW GIVEN. ENDORSED THAT THE PATIENT WILL NOT HAVE SURGERY THE SURGEON, DR YU RECOMMENDS CONSERVATIVE TREATMENT. ENDORSED THAT THE PATIENT MIGHT DC TODAY, CM WILL FOLLOW FOR NEEDS. Addendum: 05/07/21 at 1044 by Sharlene Antonio CM DC PLANNING: UPDATED CLINICAL REVIEW GIVEN TO TREY AT [facility], ENDORSED THAT THE PATIENT WAS EVALUATED BY TELEPSYCH, RECOMMENDATION TO START REMERON AND HALDOL. CM WILL FOLLOW. Addendum: 05/09/21 at 1048 by Sharlene Antonio CM DC PLANNING: CLINICAL REVIEW GIVEN TO HIRO AT [facility]. CM WILL FOLLOW.
--- NOTE | 2021-05-02 11:48 | NUR ---
05/02/21 RD INITIAL ASSESSMENT COMPLETED PLEASE REFER TO NUTRITION ASSESSMENT UNDER CARE ACTIVITY FOR ESTIMATED NUTRITIONAL NEEDS. 1. CONTINUE FULL LIQUID DIET TOLERATED 2. WHEN/IF MEDICALLY APPROPRIATE, ADVANCE TO CARDIAC DIET 3. IF PT NEEDS TUBE FEEDING, RECOMMEND VITAL AF 1.2 @ 45 ML/HR WITH WATER FLUSH 100 ML Q6H -START AT 10 ML/HR AND INCREASE BY 10 ML Q[address]. [address] TO FOLLOW-UP 2-3 DAYS, HIGH RISK BUNNY SEXTON RD
[2021-05-02] MEDS: MORPHINE SULFATE 4 MG/ML SYR IVP PRN (12:19)
--- NOTE | 2021-05-02 12:19 | NUR ---
PATIENT COMPLAINS PAIN ON LEFT ABD 9/10. PRN PAIN MEDICATION GIVEN WITH EDUCATION. SCHEDULE MEDICATION GIVEN. PATIENT VERBALIZED UNDERSTANDING. PATIENT TOLERATED WELL. NO SIGN OF DISTRESS NOTED. PRECAUTION IN PLACE. CALL LIGHT WITHIN REACH. WILL CONTINUE TO MONITOR.
--- NOTE | 2021-05-02 13:43 | NUR ---
DR YU AT BEDSIDE.
--- NOTE | 2021-05-02 15:20 | NUR ---
PATIENT IS RESTING IN BED, NO SIGN OF DISTRESS NOTED. PRECAUTION IN PLACE. CALL LIGHT WITHIN REACH. WILL CONTINUE TO MONITOR.
[2021-05-02 16:00] VITALS: BP 125/57
[2021-05-02] MEDS: BACLOFEN 10 MG TAB PO SCH (17:16)
[2021-05-02] MEDS: GABAPENTIN 300 MG CAP PO SCH (17:16)
--- NOTE | 2021-05-02 17:20 | NUR ---
SCHEDULE MEDICATIONS GIVEN WITH EDUCATION, PATIENT VERBALIZED UNDERSTANDING. PATIENT TOLERATED WELL. NO SIGN OF DISTRESS NOTED. PRECAUTION IN PLACE. CALL LIGHT WITHIN REACH. WILL CONTINUE TO MONITOR.
--- NOTE | 2021-05-02 19:04 | NUR ---
ENDORSED PATIENT TO FORESTRY FOREMAN NURSE TO CONTINUITY OF CARE. PATIENT IS STABLE.
--- NOTE | 2021-05-02 19:20 | NUR ---
HIT THE CALL LIGHT - PT C/O NAUSEA , ABDL . PAIN , AND SHE SAID SHE SEEMS A LOT OF AIR INSIDE THE BELLY - SHE SAID SHE DRANK COFFEE W/ MILK - SHE SEEMS HAS MILK INTOLERANCE . - WILL REFER TO NURSE WINKLER . CALL LIGHT WITHIN REACH . Addendum: 05/02/21 at 1938 by Melanie Sims RN REFER TO KEILA WINKLER , FELIPE ABOUT THE CONCERN OF PT . - HE VERBALIZES UNDERSTANDING .- ESTEVAN
--- NOTE | 2021-05-02 19:30 | NUR ---
RECEIVED BEDSIDE REPORT FROM DAY SHIFT RN. PT IS AWAKE IN BED. PT IS COMPLAINING OF ABD DISCOMFORT. SHE DRANK COFFEE WITH MILK AND SEEMS LIKE SHE IS INTOLERANCE TO MILK. PT SAYS IT IS NOT THE MILK. NO OTHER COMPLAINS AT THIS TIME. CALL LIGHT WITHIN REACH. ALL SAFETY MEASURES TAKEN. WILL CONTINUE TO MONITOR THE PT.
[2021-05-02 20:00] VITALS: BP 115/40
--- NOTE | 2021-05-02 20:35 | NUR ---
PT LEFT FOR X-RAY VIA WHEELCHAIR. PT IS NOT IN ANY DISTRESS.
--- NOTE | 2021-05-03 00:30 | NUR ---
PT IS SLEEPING IN BED. PT IS NOT IN ANY DISTRESS. VISIBLE CHEST RISE AND FALL. CALL LIGHT WITHIN REACH. ALL SAFETY MEASURES TAKEN. WILL CONTINUE TO MONITOR THE PT.
--- NOTE | 2021-05-03 02:22 | NUR ---
PT IS SLEEPING. PT IS NOT IN ANY DISTRESS. NO SIGNS OF SOB OR LABORED BREATHING NOTED. CALL LIGHT WITHIN REACH. ALL SAFETY MEASURES TAKEN. WILL CONTINUE TO MONITOR THE PT.
[2021-05-03 04:00] VITALS: BP 110/50
[2021-05-03] MEDS: PIPERACILLIN/TAZOBACTAM 3.375 GM in DEXTROSE 5% 50 ML IV SCH ×3 (04:25→20:48)
--- NOTE | 2021-05-03 05:53 | NUR ---
PT IS AWAKE IN BED ON RA AND NOT IN ANY DISTRESS. PT WANTED SOME ICE CHIPS AND SOME ORANGE JUICE. ICE CHIPS AND ORANGE JUICE PROVIDED REQUESTED. WILL CONTINUE TO MONITOR THE PT.
--- NOTE | 2021-05-03 07:20 | NUR ---
REPORT RECEIVED FROM PM SHIFT RN FOR CONTINUITY OF CARE. PT. STABLE.NOT IN DISTRESS. ALL SAFETY MEASURES IN PLACED. WILL CONTINUE TO MONITOR THE PT.
--- NOTE | 2021-05-03 07:22 | NUR ---
ENDORSED PT TO DAY SHIFT RN FOR CONTINUITY OF CARE. PT IS STABLE.
[2021-05-03 07:39] LABS: BASOPHILS # (AUTO) 0.1 K/uL (0.00-0.22); BASOPHILS % (AUTO) 0.8 % (0.0-2.0); EOSINOPHILS # (AUTO) 0.3 K/uL (0-0.4); EOSINOPHILS % (AUTO) 4.1 % (0.0-4.0); HEMATOCRIT 39.1 % (36-48); HEMOGLOBIN 13.2 g/dL (12.0-16.0); LYMPHOCYTES # (AUTO) 1.5 K/uL (2.5-16.5); LYMPHOCYTES % (AUTO) 20.6 % (20.5-51.1); MEAN CORPUSCULAR HEMOGLOBIN 30 pg (27-31); MEAN CORPUSCULAR HGB CONC 34 g/dL (33-37); MONOCYTES # (AUTO) 0.7 K/uL (0.8-1.0); MONOCYTES % (AUTO) 9.6 % (1.7-9.3); NEUTROPHILS # (AUTO) 4.6 K/uL (1.8-7.7); NEUTROPHILS % (AUTO) 64.9 % (42.2-75.2); PLATELET COUNT (AUTO) 362 K/uL (140-450); RED BLOOD CELL COUNT(AUTO) 4.34 MIL/uL (4.20-5.40); RED CELL DISTRIBUTION WIDTH 13.9 % (11.6-13.7); WHITE BLOOD COUNT (AUTO) 7.1 K/uL (4.8-10.8)
[2021-05-03 08:00] VITALS: BP 115/99
[2021-05-03 08:15] LABS: ANION GAP 12.8 (8-16); CARBON DIOXIDE 28.3 mmol/L (21-32); CHLORIDE 105 mmol/L (98-107); GLUCOSE 90 mg/dL (74-106); POTASSIUM 4.1 mmol/L (3.5-5.1); SODIUM SERUM 142 mmol/L (136-145); UREA NITROGEN, BLOOD 8 mg/dL (7-18)
[2021-05-03] MEDS: GABAPENTIN 300 MG CAP PO SCH ×3 (08:47→17:14)
[2021-05-03] MEDS: PANTOPRAZOLE 40 MG INJ VIAL IVP SCH (08:47)
[2021-05-03] MEDS: BACLOFEN 10 MG TAB PO SCH ×3 (08:47→17:14)
[2021-05-03] MEDS: ENOXAPARIN 40 MG/0.4 ML SYR SUBQ SCH (08:56)
--- NOTE | 2021-05-03 10:13 | NUR ---
MEDS WAS ADMINISTERED ORDER. PT. TOLERATED WELL. NO DISTRESS NOTED. SAFETY MEASURES IN PLACE. WILL CONTINUE TO MONITOR THE PT.
--- NOTE | 2021-05-03 14:00 | NUR ---
PT. LYING IN THE BED. RESTING COMFORTABLY. NO DISTRESS OBSERVED. ALL SAFETY MEASURES IN PLACED .WILL CONTINUE TO MONITOR THE PT.
[2021-05-03 16:00] VITALS: BP 134/55
--- NOTE | 2021-05-03 18:37 | NUR ---
PT. COMFORTABLY SLEEPING IN THE BED. NO S/S OF DISTRESS NOTED. ALL SAFETY MEASURES IN PLACED WILL CONTINUE TO MONITOR THE PT.
--- NOTE | 2021-05-03 19:15 | NUR ---
REPORT GIVEN TO PM ENEDELIA RN KEILA RFOR CONTUITY OF CARE. PT. STABLE.
--- NOTE | 2021-05-03 19:30 | NUR ---
RECEIVED BEDSIDE REPORT FROM DAY SHIFT RN FOR CONTINUITY OF CARE. PT IS SLEEPING IN BED. IVF RUNNING TKO. PT IS NOT IN ANY DISTRESS. BREATHING RHYTHMIC AND SYMMETRICAL. CALL LIGHT WITHIN REACH. ALL SAFETY MEASURES TAKEN. WILL CONTINUE TO MONITOR THE PT.
[2021-05-03 20:00] VITALS: BP 126/64
--- NOTE | 2021-05-03 23:40 | NUR ---
PT IS SLEEPING IN BED. PT IS NOT IN ANY DISTRESS. NO SIGNS OF SOB OR LABORED BREATHING. CALL LIGHT WITHIN REACH. ALL SAFETY MEASURES TAKEN. WILL CONTINUE TO MONITOR THE PT.
[2021-05-04] MEDS: HYDROcodone/APAP 5/325 MG 1 TAB TAB PO PRN (01:33)
--- NOTE | 2021-05-04 01:45 | NUR ---
PT PULLED IV OUT. PT WAS FOUND IN THE RESTROOM COVERED IN BLOOD. PT STATED SHE IS HAVING LEFT EAR PAIN. STEWARD. PAIN ON HER RIGHT ARM AND RIGHT CHEST. WILL CALL DR. NOYOLA.
--- NOTE | 2021-05-04 02:17 | NUR ---
CALL DR. NOYOLA. GAVE HIM AN UPDATE ON THE PT. DR. NOYOLA SAID TO GIVE HER PAIN MEDICATION AND TO OBSERVE THE PT FOR ANY CHANGES. WILL CONTINUE TO OBSERVE THE PT AND REPORT ANY CHANGES TO MD.
[2021-05-04 04:00] VITALS: BP 120/77
--- NOTE | 2021-05-04 04:15 | NUR ---
PT IS SLEEPING IN BED NOT IN ANY DISTRESS. NO SIGNS OF SOB OR LABORED BREATHING. CALL LIGHT WITHIN REACH. ALL SAFETY MEASURES TAKEN. WILL CONTINUE TO MONITOR THE PT.
[2021-05-04] MEDS: PIPERACILLIN/TAZOBACTAM 3.375 GM in DEXTROSE 5% 50 ML IV SCH ×3 (05:14→21:35)
[2021-05-04] MEDS: MORPHINE SULFATE 4 MG/ML SYR IVP PRN (05:21)
--- NOTE | 2021-05-04 06:30 | NUR ---
PT HAS NEW IV ON LEFT HAND 24 GAUGE. PT IS COMPLAINING OF ARM PAIN. COMFORT MEASURES PROVIDED. WILL CONTINUE TO OBSERVE THE PT.
--- NOTE | 2021-05-04 07:30 | NUR ---
ENDORSED PT TO DAY SHIFT NURSE FOR CONTINUITY OF CARE. PT IS STABLE.
[2021-05-04 08:17] LABS: BASOPHILS # (AUTO) 0.1 K/uL (0.00-0.22); BASOPHILS % (AUTO) 0.9 % (0.0-2.0); EOSINOPHILS # (AUTO) 0.1 K/uL (0-0.4); EOSINOPHILS % (AUTO) 0.9 % (0.0-4.0); HEMOGLOBIN 14.3 g/dL (12.0-16.0); LYMPHOCYTES # (AUTO) 1.6 K/uL (2.5-16.5); LYMPHOCYTES % (AUTO) 13.6 % (20.5-51.1); MEAN CORPUSCULAR HEMOGLOBIN 30 pg (27-31); MEAN CORPUSCULAR HGB CONC 33 g/dL (33-37); MEAN CORPUSCULAR VOLUME 90.7 fL (80-94); MONOCYTES # (AUTO) 0.6 K/uL (0.8-1.0); MONOCYTES % (AUTO) 5.5 % (1.7-9.3); NEUTROPHILS # (AUTO) 9.1 K/uL (1.8-7.7); NEUTROPHILS % (AUTO) 79.1 % (42.2-75.2); PLATELET COUNT (AUTO) 361 K/uL (140-450); RED BLOOD CELL COUNT(AUTO) 4.74 MIL/uL (4.20-5.40); RED CELL DISTRIBUTION WIDTH 14.3 % (11.6-13.7); WHITE BLOOD COUNT (AUTO) 11.6 K/uL (4.8-10.8)
--- NOTE | 2021-05-04 08:22 | NUR ---
RECEIVED BEDSIDE REPORT FROM WAITER/WAITRESS BAR RN FOR CONTINUITY OF CARE. PT IN BED AX3 ON ROOM AIR . IV ON LEFT HAND 24G SALINE LOCK. PT IS NOT IN ANY DISTRESS. BREATHING UNLABORED SYMMETRICAL. CALL LIGHT WITHIN REACH. ALL SAFETY MEASURES TAKEN CALLS LIGHT WITHIN REACH ALL SAFETY MEASURES ON PLACE
[2021-05-04 08:41] LABS: ANION GAP 14.6 (8-16); CARBON DIOXIDE 25.5 mmol/L (21-32); CHLORIDE 103 mmol/L (98-107); CREATININE 1.2 mg/dL (0.6-1.3); GLUCOSE 101 mg/dL (74-106); POTASSIUM 4.1 mmol/L (3.5-5.1); SODIUM SERUM 139 mmol/L (136-145); UREA NITROGEN, BLOOD 9 mg/dL (7-18)
[2021-05-04] MEDS: BACLOFEN 10 MG TAB PO SCH ×3 (09:02→16:39)
[2021-05-04] MEDS: GABAPENTIN 300 MG CAP PO SCH ×3 (09:03→16:39)
[2021-05-04] MEDS: PANTOPRAZOLE 40 MG INJ VIAL IVP SCH (09:03)
[2021-05-04] MEDS: ENOXAPARIN 40 MG/0.4 ML SYR SUBQ SCH (09:04)
--- NOTE | 2021-05-04 10:34 | NUR ---
PATIENT IN BED NO COMPLAINS GOT MORNING MEDICATIONS TOLERATED WELL, CALLS LIGHT WITHIN REACH ALL SAFETY MEASURES ON PLACE
--- NOTE | 2021-05-04 11:12 | NUR ---
(05/04/21) RD FOLLOW UP COMPLETED PLEASE REFER TO NUTRITION PROGRESS NOTE UNDER CARE ACTIVITY FOR ESTIMATED NUTRITION NEEDS. RD RECOMMENDATIONS: 1. CONTINUE FULL LIQUID DIET TOLERATED 2. WHEN/IF MEDICALLY APPROPRIATE, ADVANCE TO CARDIAC DIET 3. RD TO FOLLOW-UP 2-3 DAYS, HIGH RISK MATT WATSON MS, RDN
--- NOTE | 2021-05-04 12:32 | NUR ---
PATIENT IN BED NO COMPLAINS NO SOD NOTED ,FAMILY MEMBER CALLED, ALL QUESTIONS WERE ANSWERED CALLS LIGHT WITHUN REACH ALL SAFETY MEASURES ON PLACE
--- NOTE | 2021-05-04 15:02 | NUR ---
PATIENT IN BED NO COMPLAINS NO SOD NOTED , CALLS LIGHT WITHUN REACH ALL SAFETY MEASURES ON PLACE
[2021-05-04 16:00] VITALS: BP 153/66
--- NOTE | 2021-05-04 17:19 | NUR ---
PATIENT IN BED NO COMPLAINS NO SOD NOTED , CALLS LIGHT WITHUN REACH ALL SAFETY MEASURES ON PLACE
--- NOTE | 2021-05-04 19:05 | NUR ---
FULL BEDSIDE REPORT GIVEN TO MULTIFOCAL BUTTON GENERATOR NURSE
--- NOTE | 2021-05-04 19:15 | NUR ---
RECEIVED REPORT FROM MORNING SHIFT FOR CONTINUITY OF CARE. PATIENT IS STABLE IN BED. A&OX0. VERBALLY RESPONSIVE AND ABLE TO COMMUNICATE NEEDS. DENIES PAIN. ON ROOM AIR WITH NO APPARENT S/SX OF ACUTE DISTRESS. RESPIRATIONS EVEN AND UNLABORED. IV SITE TO THE LF 24G IS PATENT/INTACT/ASYMPTOMATIC SL. SKIN IS INTACT. PATIENT IS INCONTINENT AND UTILIZES PULL UP. PLAN OF CARE AND WHITE COMMUNICATION BOARD UPDATED. BED IN LOW/LOCKED POSITION. CALL LIGHT WITHIN REACH. WILL CONTINUE TO MONITOR.
--- NOTE | 2021-05-04 19:20 | NUR ---
MANUFACTURING ENGINEER SUPERVISOR PICKED UP PATIENT FOR HEAD CT WITHOUT CONTRAST. PATIENT IS STABLE.
--- NOTE | 2021-05-04 19:45 | NUR ---
PATIENT RETURNED TO [facility] WITH SCHOOL SOCIAL WORKER. PATIENT IS STABLE.
[2021-05-04 20:00] VITALS: BP 128/75
--- NOTE | 2021-05-04 21:45 | NUR ---
CHECKED PATIENT. STABLE AND RESTING IN BED. FLACC=O. CHEST IS RISING AND FALLING. CLEANED TRAY. RESPIRATIONS EVEN AND UNLABORED WITH NO APPARENT S/SX OF ACUTE DISTRESS. WHITE COMMUNICATION BOARD UPDATED. ALL SAFETY MEASURES IN PLACE. CALL LIGHT WITHIN REACH. WILL CONTINUE TO MONITOR.
--- NOTE | 2021-05-04 23:45 | NUR ---
PATIENT IS AGITATED AND VERBALIZING INCOHERENT SENTENCES. STAYED WITH PATIENT TO ENSURE PATIENT WILL NOT FALL. MADE PATIENT COMFORTABLE AND REPOSITIONED. FLACC=0. RESPIRATIONS EVEN AND UNLABORED WITH NO APPARENT S/SX OF ACUTE DISTRESS. WHITE COMMUNICATION BOARD UPDATED. ALL SAFETY MEASURES IN PLACE. CALL LIGHT WITHIN REACH. WILL CONTINUE TO MONITOR.
--- NOTE | 2021-05-05 01:45 | NUR ---
CHECKED PATIENT. STABLE AND ASLEEP. CHEST IS RISING AND FALLING SYMMETRICALLY. RESPIRATIONS EVEN AND UNLABORED WITH NO APPARENT S/SX OF ACUTE DISTRESS. WHITE COMMUNICATION BOARD UPDATED. ALL SAFETY MEASURES IN PLACE. CALL LIGHT WITHIN REACH. WILL CONTINUE TO MONITOR.
--- NOTE | 2021-05-05 03:32 | NUR ---
Patient's Plan of Care was discussed and reviewed with STRING STUDIES DIRECTOR: SERG PABON
--- NOTE | 2021-05-05 03:45 | NUR ---
PATIENT IS AWAKE AND CONFUSED. RE-ORIENTED TO HOSPITAL ENVIRONMENT. FLACC=0. RESPIRATIONS EVEN AND UNLABORED WITH NO APPARENT S/SX OF ACUTE DISTRESS. WHITE COMMUNICATION BOARD UPDATED. ALL SAFETY MEASURES IN PLACE. CALL LIGHT WITHIN REACH. WILL CONTINUE TO MONITOR.
[2021-05-05] MEDS: PIPERACILLIN/TAZOBACTAM 3.375 GM in DEXTROSE 5% 50 ML IV SCH ×3 (05:07→21:25)
--- NOTE | 2021-05-05 05:15 | NUR ---
ROUNDED ON PATIENT. STABLE AND ASLEEP. CHEST IS RISING AND FALLING SYMMETRICALLY. RESPIRATIONS EVEN AND UNLABORED WITH NO APPARENT S/SX OF ACUTE DISTRESS. WHITE COMMUNICATION BOARD UPDATED. ALL SAFETY MEASURES IN PLACE. CALL LIGHT WITHIN REACH. WILL CONTINUE TO MONITOR.
--- NOTE | 2021-05-05 07:15 | NUR ---
ENDORSED PATIENT TO MORNING SHIFT NURSE FOR CONTINUITY OF CARE. PATIENT IS STABLE.
--- NOTE | 2021-05-05 07:20 | NUR ---
RECEIVED PT FROM NIGHT RN, PT IS AWAKE AND SEATED ON THE BED WITH SIDE RAILS AND CALL LIGHT WITHIN REACH, IV LINE NOTED ON THE LEFT FOREARM G. 24 WITH IVF ON TKO, PT IS ON RA, VERY CONFUSED, SAFETY AND FALL PRECAUTION ENFORCED, PT IS SHOUTING AND GETS MAD WHEN YOU TOUCH HER, NO SIGN OF DISTRESS NOTED AND WILL CONTINUE TO MONITOR PT.
[2021-05-05 08:00] VITALS: BP 126/73
[2021-05-05 08:03] LABS: BASOPHILS # (AUTO) 0.1 K/uL (0.00-0.22); BASOPHILS % (AUTO) 1.1 % (0.0-2.0); EOSINOPHILS # (AUTO) 0.2 K/uL (0-0.4); EOSINOPHILS % (AUTO) 1.9 % (0.0-4.0); HEMATOCRIT 40.5 % (36-48); HEMOGLOBIN 13.5 g/dL (12.0-16.0); LYMPHOCYTES # (AUTO) 2.4 K/uL (2.5-16.5); MEAN CORPUSCULAR HEMOGLOBIN 30 pg (27-31); MEAN CORPUSCULAR HGB CONC 33 g/dL (33-37); MEAN CORPUSCULAR VOLUME 90.4 fL (80-94); MONOCYTES % (AUTO) 9.4 % (1.7-9.3); NEUTROPHILS # (AUTO) 6.7 K/uL (1.8-7.7); NEUTROPHILS % (AUTO) 64.6 % (42.2-75.2); PLATELET COUNT (AUTO) 359 K/uL (140-450); RED BLOOD CELL COUNT(AUTO) 4.48 MIL/uL (4.20-5.40); RED CELL DISTRIBUTION WIDTH 14.2 % (11.6-13.7); WHITE BLOOD COUNT (AUTO) 10.4 K/uL (4.8-10.8)
[2021-05-05 08:32] LABS: ANION GAP 14.2 (8-16); CARBON DIOXIDE 26.3 mmol/L (21-32); CHLORIDE 102 mmol/L (98-107); CREATININE 1.1 mg/dL (0.6-1.3); GLUCOSE 87 mg/dL (74-106); POTASSIUM 3.5 mmol/L (3.5-5.1); SODIUM SERUM 139 mmol/L (136-145)
[2021-05-05] MEDS: ENOXAPARIN 40 MG/0.4 ML SYR SUBQ SCH (10:13)
[2021-05-05] MEDS: BACLOFEN 10 MG TAB PO SCH ×4 (10:14→17:00)
[2021-05-05] MEDS: GABAPENTIN 300 MG CAP PO SCH ×4 (10:14→17:00)
[2021-05-05] MEDS: PANTOPRAZOLE 40 MG INJ VIAL IVP SCH (10:14)
[2021-05-05 10:18] LABS: UREA NITROGEN, BLOOD 9 mg/dL (7-18)
--- NOTE | 2021-05-05 10:20 | NUR ---
PT KEEPS SHOUTING AND IS TALKING TO HERSELF.
--- NOTE | 2021-05-05 13:40 | NUR ---
PT REFUSED THE SCHEDULED 1300 NEURONTIN AND LIORESAL.
--- NOTE | 2021-05-05 16:15 | NUR ---
PT REFUSED TO HAVE THE VITAL SIGNS TAKEN NOW, PT BECOMES AGGRESSIVE AND ANGRY AND STARTED SHOUTING WHEN TOUCHED.
[2021-05-05] MEDS ORDERED: HALOPERIDOL IM 5 MG/ML VIAL IM PRN (16:55)
[2021-05-05] MEDS ORDERED: LORazepam 2 MG/ML VIAL IVP PRN (16:55)
--- NOTE | 2021-05-05 17:38 | NUR ---
PT REFUSED TO TAKE THE SCHEDULED 1700 MEDICATION, PT IS AGGRESSIVE AND IS SHOUTING.
--- NOTE | 2021-05-05 19:15 | NUR ---
RECEIVED REPORT FROM MORNING SHIFT FOR CONTINUITY OF CARE. PATIENT IS STABLE IN BED. A&OX1 WITH CONFUSION NOTED. PATIENT IS VERBALIZING INCOHERENT PHRASES. RE-ORIENTED BACK TO HOSPITAL ENVIRONMENT. DENIES PAIN. ON ROOM AIR WITH NO APPARENT S/SX OF ACUTE DISTRESS. RESPIRATIONS EVEN AND UNLABORED. IV SITE TO THE LF 24G IS PATENT/INTACT/ASYMPTOMATIC TKO WITH NS @ 10 ML/HOUR. SKIN IS INTACT. PATIENT IS INCONTINENT AND UTILIZES PULL UP. PLAN OF CARE AND WHITE COMMUNICATION BOARD UPDATED. BED IN LOW/LOCKED POSITION. CALL LIGHT WITHIN REACH. WILL CONTINUE TO MONITOR.
[2021-05-05 20:00] VITALS: BP 119/85
--- NOTE | 2021-05-05 21:15 | NUR ---
RE-ORIENTED PATIENT TO PLACE, DATE, AND TIME. PATIENT IS ABLE TO FOLLOW VERBAL COMMAND. DENIES PAIN. RESPIRATIONS EVEN AND UNLABORED WITH NO APPARENT S/SX OF ACUTE DISTRESS. WHITE COMMUNICATION BOARD UPDATED. ALL SAFETY MEASURES IN PLACE. CALL LIGHT WITHIN REACH. WILL CONTINUE TO MONITOR.
--- NOTE | 2021-05-06 01:15 | NUR ---
PATIENT IS STABLE AND AWAKE WHILE VERBALIZING INCOHERENT PHRASES. RE-ORIENTED BACK TO PLACE, TIME, AND DATE. PATIENT IS ABLE TO FOLLOW VERBAL COMMANDS. DENIES PAIN. RESPIRATIONS EVEN AND UNLABORED WITH NO APPARENT S/SX OF ACUTE DISTRESS. WHITE COMMUNICATION BOARD UPDATED. ALL SAFETY MEASURES IN PLACE. CALL LIGHT WITHIN REACH. WILL CONTINUE TO MONITOR.
--- NOTE | 2021-05-06 02:00 | NUR ---
Patient's Plan of Care was discussed and reviewed with MEDICAL ARTIST: SERG JEAN
--- NOTE | 2021-05-06 05:15 | NUR ---
CHECKED PATIENT. STABLE AND AWAKE. PATIENT IS CALM. PATIENT IS RE-ORIENTED TO TIME, PLACE, AND DATE. DENIES PAIN. RESPIRATIONS EVEN AND UNLABORED WITH NO APPARENT S/SX OF ACUTE DISTRESS. ALL NEEDS MET. WHITE COMMUNICATION BOARD UPDATED. ALL SAFETY MEASURES IN PLACE. CALL LIGHT WITHIN REACH. WILL CONTINUE TO MONITOR.
--- NOTE | 2021-05-06 07:25 | NUR ---
ENDORSED PATIENT TO MORNING SHIFT NURSE FOR CONTINUITY OF CARE. PATIENT IS STABLE.
--- NOTE | 2021-05-06 07:35 | NUR ---
REPORT RECEIVED FROM PM SHIFT THOMAS SEPULVEDA FOR CONTINUITY OF CARE. PT. ALERT AWAKE. VERBALY RESPONDING. NOT IN DISTRESS ON ROOM AIR. ALL SAFETY MEASURES IN PLACED. WILL CONTINUE TO MONITOR THE PT.
[2021-05-06 08:00] VITALS: BP 142/55
[2021-05-06] MEDS: PANTOPRAZOLE 40 MG INJ VIAL IVP SCH (09:19)
[2021-05-06] MEDS: GABAPENTIN 300 MG CAP PO SCH ×3 (09:19→17:40)
[2021-05-06] MEDS: BACLOFEN 10 MG TAB PO SCH ×3 (09:19→17:40)
[2021-05-06] MEDS: ENOXAPARIN 40 MG/0.4 ML SYR SUBQ SCH (09:24)
--- NOTE | 2021-05-06 10:00 | NUR ---
PT. SITTING IN THE BED. ALERT BUT CONFUSED. ATTENDED ALL NEEDS. STABLE ON ROOM AIR. ALL SAFETY MEASURES IN PLACED. WILL CONTINUE TO MONITOR THE PT.
--- NOTE | 2021-05-06 12:31 | NUR ---
PT. LYING IN THE BED . NO S/S OF DISTRESS NOTED. BREATHINGS EVEN AND UNLABORED ON ROOM AIR. ALL SAFETY MEASURES IN PLACE. WILL CONTINUE TO MONITOR THE PT.
--- NOTE | 2021-05-06 14:00 | NUR ---
PT. SITTING IN THE BED ALERT AWAKE, CONFUSED. . ASKING FOR ICE CHIPS . GIVEN ICE CHIPS. PT. NO NOTED DISTRESS ON ROOM AIR. ALL SAFETY MEASURES IN PLACED. CALL LIGHT WITHIN REACH. WILL CONTINUE TO MONITOR THE PT.
[2021-05-06 16:00] VITALS: BP 167/51
--- NOTE | 2021-05-06 16:50 | NUR ---
TELE PSYCH CONSULT SERVICE DONE WITH . . PROVIDE ALL INFORMATION TO THE MD. MD ALSO TALK TO THE PT. AND PT. ANSWERED THE QUESTIONS. MD SAID , I WILL PUT MY RECOMMENDATION. WILL FOLLOW UP WITH MD'S ORDER.. PT SITTING IN THE BED. STABLE. NOT IN DISTRESS ON ROOM AIR. WILL CONTINUE TO MONITOR THE PT..
--- NOTE | 2021-05-06 18:23 | NUR ---
PT. STABLE. SITTING IN THE BED. RESP. NORMAL ON ROOM AIR. ALL SAFETY MEASURES IN PLACED. WILL CONTINUE TO MONITOR THE PT.
--- NOTE | 2021-05-06 19:22 | NUR ---
ENDORSED REPORT TO THE PM SHIFT THOMAS SEPULVEDA FOR CONTINUITY OF CARE. PT. STABLE.
--- NOTE | 2021-05-06 19:23 | NUR ---
RECEIVED REPORT FROM MORNING SHIFT FOR CONTINUITY OF CARE. PATIENT IS STABLE IN BED. A&OX1 WITH CONFUSION. RESPONDS TO NAME AND ABLE TO FOLLOW VERBAL COMMANDS. DENIES PAIN. ON ROOM AIR WITH NO APPARENT S/SX OF ACUTE DISTRESS. RESPIRATIONS EVEN AND UNLABORED. IV SITE TO THE LFA 24G IS PATENT/INTACT/ASYMPTOMATIC SL. SKIN IS INTACT. PATIENT IS INCONTINENT AND UTILIZES PULL UP. PLAN OF CARE AND WHITE COMMUNICATION BOARD UPDATED. BED IN LOW/LOCKED POSITION. CALL LIGHT WITHIN REACH. WILL CONTINUE TO MONITOR.
[2021-05-06 20:00] VITALS: BP 121/62
--- NOTE | 2021-05-06 21:15 | NUR ---
RE-ORIENTED PATIENT TO TIME, PLACE, AND DAY. DENIES PAIN. RESPIRATIONS EVEN AND UNLABORED WITH NO APPARENT S/SX OF ACUTE DISTRESS. WHITE COMMUNICATION BOARD UPDATED. ALL SAFETY MEASURES IN PLACE. CALL LIGHT WITHIN REACH. WILL CONTINUE TO MONITOR.
--- NOTE | 2021-05-06 23:15 | NUR ---
CHECKED PATIENT. STABLE AND RESTING. CHEST IS RISING AND FALLING SYMMETRICALLY. RESPIRATIONS EVEN AND UNLABORED WITH NO APPARENT S/SX OF ACUTE DISTRESS. WHITE COMMUNICATION BOARD UPDATED. ALL SAFETY MEASURES IN PLACE. CALL LIGHT WITHIN REACH. WILL CONTINUE TO MONITOR.
--- NOTE | 2021-05-07 01:15 | NUR ---
RE-ORIENTED PATIENT TO TIME, PLACE AND DAY. DENIES PAIN. RESPIRATIONS EVEN AND UNLABORED WITH NO APPARENT S/SX OF ACUTE DISTRESS. WHITE COMMUNICATION BOARD UPDATED. ALL SAFETY MEASURES IN PLACE. CALL LIGHT WITHIN REACH. WILL CONTINUE TO MONITOR.
--- NOTE | 2021-05-07 05:15 | NUR ---
CLEANED AND CHANGED PATIENT. TOLERATED WELL. DENIES PAIN. RESPIRATIONS EVEN AND UNLABORED WITH NO APPARENT S/SX OF ACUTE DISTRESS. ALL NEEDS MET. WHITE COMMUNICATION BOARD UPDATED. ALL SAFETY MEASURES IN PLACE. CALL LIGHT WITHIN REACH. WILL CONTINUE TO MONITOR.
--- NOTE | 2021-05-07 07:20 | NUR ---
ENDORSED PATIENT TO MORNING SHIFT NURSE FOR CONTINUITY OF CARE. PATIENT IS STABLE.
--- NOTE | 2021-05-07 07:21 | NUR ---
RECEIVED ENDORSEMENT FROM WET FINISHER NURSE FOR CONTINUITY OF CARE.
[2021-05-07 08:00] VITALS: BP 136/61
--- NOTE | 2021-05-07 08:00 | NUR ---
Patient's Plan of Care was discussed and reviewed with MAINSPRING TORQUE TESTER: PAIGE PAYNE
[2021-05-07] MEDS: BACLOFEN 10 MG TAB PO SCH ×3 (09:15→16:43)
[2021-05-07] MEDS: PANTOPRAZOLE 40 MG INJ VIAL IVP SCH (09:15)
[2021-05-07] MEDS: GABAPENTIN 300 MG CAP PO SCH ×3 (09:15→16:42)
[2021-05-07] MEDS: ENOXAPARIN 40 MG/0.4 ML SYR SUBQ SCH (09:18)
--- NOTE | 2021-05-07 09:19 | NUR ---
I GAVE ORAL AND SUBCUTANEOUS MEDICATION AND RN GAVE IVP MEDICATION.
[2021-05-07] MEDS: MIRTAZAPINE 15 MG TAB PO SCH ×3 (10:03→16:43)
--- NOTE | 2021-05-07 11:00 | NUR ---
PT ON BED RESTING NO DISTRESS NOTED. KEEP ON TALKING. NO ADVERSE REACTION NOTED ON REMERON.
--- NOTE | 2021-05-07 13:00 | NUR ---
PT EATING HER LUNCH SHE TOLERATED 90% ON HER MEAL. ALL SAFETY MEASURE IN PLACE. CALL LIGHT WITH IN EASY REACH.
--- NOTE | 2021-05-07 14:25 | NUR ---
05/07/21 RD FOLLOW UP COMPLETED PLEASE REFER TO NUTRITION ASSESSMENT UNDER CARE ACTIVITY FOR ESTIMATED NUTRITIONAL NEEDS. 1. WHEN/IF MEDICALLY APPROPRIATE, ADVANCE TO CARDIAC DIET 2. MONITOR GI SYMPTOMS 3. RD TO FOLLOW-UP 3-5 DAYS, MODERATE RISK (DOWNGRADED D/T PT WITH > 75% PO INTAKE WITHOUT GI SYMPTOMS) [address]
--- NOTE | 2021-05-07 16:00 | NUR ---
PT ON BED RESTING NOT ON ANY DISTRESS OR DISCOMFORT.
--- NOTE | 2021-05-07 17:00 | NUR ---
GIVEN ORAL MEDICATION TOLERATED WELL.
[2021-05-07 18:00] VITALS: BP 130/50
--- NOTE | 2021-05-07 18:50 | NUR ---
PT ASLEEP CALL LIGHT WITH IN EASY REACH.
[2021-05-08 05:17] VITALS: BP 132/65
--- NOTE | 2021-05-08 07:23 | NUR ---
RECEIVED REPORT FROM HEAVY EQUIPMENT ENGINE MECHANIC NURSE FOR CONTINUITY OF CARE
[2021-05-08] MEDS: MIRTAZAPINE 15 MG TAB PO SCH ×3 (09:55→17:14)
[2021-05-08] MEDS: PANTOPRAZOLE 40 MG INJ VIAL IVP SCH (09:55)
[2021-05-08] MEDS: GABAPENTIN 300 MG CAP PO SCH ×3 (09:55→17:14)
[2021-05-08] MEDS: BACLOFEN 10 MG TAB PO SCH ×3 (09:55→17:14)
[2021-05-08] MEDS: ENOXAPARIN 40 MG/0.4 ML SYR SUBQ SCH (09:55)
[2021-05-08 11:04] LABS: BASOPHILS # (AUTO) 0.1 K/uL (0.00-0.22); BASOPHILS % (AUTO) 1.2 % (0.0-2.0); EOSINOPHILS # (AUTO) 0.2 K/uL (0-0.4); EOSINOPHILS % (AUTO) 1.8 % (0.0-4.0); HEMATOCRIT 41.4 % (36-48); HEMOGLOBIN 13.9 g/dL (12.0-16.0); LYMPHOCYTES # (AUTO) 2.5 K/uL (2.5-16.5); LYMPHOCYTES % (AUTO) 23.3 % (20.5-51.1); MEAN CORPUSCULAR HEMOGLOBIN 30 pg (27-31); MEAN CORPUSCULAR HGB CONC 34 g/dL (33-37); MEAN CORPUSCULAR VOLUME 90.1 fL (80-94); MONOCYTES # (AUTO) 0.8 K/uL (0.8-1.0); MONOCYTES % (AUTO) 7.2 % (1.7-9.3); NEUTROPHILS # (AUTO) 7.2 K/uL (1.8-7.7); NEUTROPHILS % (AUTO) 66.5 % (42.2-75.2); PLATELET COUNT (AUTO) 395 K/uL (140-450); RED CELL DISTRIBUTION WIDTH 14.2 % (11.6-13.7); WHITE BLOOD COUNT (AUTO) 10.8 K/uL (4.8-10.8)
[2021-05-08 11:18] LABS: ANION GAP 13.9 (8-16); CARBON DIOXIDE 27.8 mmol/L (21-32); CHLORIDE 106 mmol/L (98-107); GLUCOSE 72 mg/dL (74-106); POTASSIUM 3.7 mmol/L (3.5-5.1); SODIUM SERUM 144 mmol/L (136-145); UREA NITROGEN, BLOOD 12 mg/dL (7-18)
--- NOTE | 2021-05-08 11:26 | NUR ---
PT STABLE. NO S/S OF DISTRESS. CALL IGHT IN REACH. ALL SAFETY MEASURES IN PLACE.
[2021-05-08] MEDS ORDERED: BACL10TA4 PO (15:27)
[2021-05-08] MEDS ORDERED: GABA300C1 PO (15:27)
[2021-05-08] MEDS ORDERED: ONDA4TAB PO (15:27)
[2021-05-08 15:52] VITALS: BP 132/65
[2021-05-08 16:00] VITALS: BP 132/65
--- NOTE | 2021-05-08 16:00 | NUR ---
DC PLANNING PATIENT IS A 71 YEAR OLD FEMALE ADMITTED ON 05/03/2021 DUE TO INTESTINAL OBSTRUCTION PRESENTING TO THE ED WITH COMPLAINT OF ABDOMINAL PAIN. SW MET WITH PATIENT AT BEDSIDE TO DISCUSS AND GATHER HER COLLATERAL INFORMATION. PATIENT REPORTED LIVING AT HOME ALONE BUT HAVING FAMILY SUPPORT WITH HER DAUGHTER IN[place] ALEX[place] AND SON CYNDI SANTIZO LIVING NEXT DOOR TO HER. PATIENT WAS ABLE TO DISCUSS AND PROVIDE MUST OF HER INFORMATION HOWEVER; AT TIMES SHE SEEM CONFUSED AND FORGETFUL WITH TOPIC OF DISCUSSION. PATIENT SEEM DISORGANIZED ON THOUGHTS AT PARTS OF THE CONVERSATIONS WITH THESE ADMINISTRATIVE JUDGE HOWEVER; WAS ABLE TO REPORT THAT SHE DO NOT HAVE AN ADVANCE DIRECTIVE BUT WILL HAVE HER SON CYNDI BE HER EMERGENCY CONTACT AND MEDICAL DESICION MAKER PER PATIENT'S STATEMENT "HE AND HIS DO TAKE CARE OF ME " PATIENT DECLINED A.D. INF. PACKET PROVIDED BY DANI. PATIENT REPORTED NOT HAVING ANY ISSUES GETTING OR TAKING HER MEDICATIONS WHEN PRESCRIBED BY MD. PER PATIENT HER FAMILY GETS THEM FOR HER NEAR PHARMACY IN [facility] AND TRIES TO BE IN COMPLIANCE WITH HER MEDIATIONS AT HOME. PATIENT STATED NOT HAVING OR NEEDING DME AT HOME AND BEEN ACTIVE AND INDEPENDENT. PATIENT REPORTED HAVING A PCP CHRIS SUÁREZ HOWEVER NOT SEEING MD IN ABOUT 6 MONTHS. SW DISCUSSED WITH PATIENT THE IMPORTANCE OF FOLLOW UP APPOINTMENT AFTER HER DC FROM [facility] AND ALSO DISCUSSED ABOUT MD RECOMMENDATIONS TO SNF" PATIENT GOT UPSET AND STATED " I WILL NOT GO TO THERE I WANT TO GO HOME WITH MY FAMILY" PATIENT REPORTED TO DANI THAT SHE WILL BE ASSISTED BY HER SON AND DAUGHTER IN [place] WITH TRANSPORTATION BACK HOME WHEN SHE IS READY FOR DC FROM [facility]. SW CONTACTED PATIENT'S SON CYNDI TO DISCUSS MD RECOMMENDATIONS TO SNF AND DISCUSS DC, PLANNING. TAYLOR'S SON AGREED AND WILL BE TAKING PATIENT BACK HOME. SW THANK HIM FOR THE CALL BACK AND WILL FOLLOW UP NEEDED.
--- NOTE | 2021-05-08 16:24 | NUR ---
PT. WITH LOW DHARA SCALE AT RISK, CONTINUE TO FOLLOW PRESSURE INJURY PREVENTION INTERVENTIONS. -TURNING AND/OR REPOSITIONING EVERY 1-2 HRS. -PROTECT/FLOAT HEELS -BY PLACING PILLOWS UNDER CALVES AT ALL TIMES, UNLESS OTHERWISE CONTRAINDICATE. APPLY HEEL PROTECTORS -MANAGE FRICTION AND SHEAR BY USING LIFT SHEET TO REPOSITION THE PATIENT. -MANAGE MOISTURE, FRICTION, AND SHEAR. KEEP SKIN DRY AND PROTECT FROM FRICTION. -INSPECT UNDER AND AROUND MEDICAL DEVICES. -ASSESS AND MONITOR SKIN CONDITION DURING POSITION CHANGE -PRESSURE REDISTRIBUTION SURFACE AND OFFLOADING SACRALCOCCYX -HOB 30 DEGREES, TOLERATED -PLEASE FOLLOW RD RECOMMENDATIONS
--- NOTE | 2021-05-08 17:00 | NUR ---
PT WAS BEING DISCHARGED HOME WHEN SHE DECLINED. PT COULD NOT HOLD HER SELF UP, AND BEGAN HAVING SMALL CONVULSING EPISODES EACH TIME SHE SAT UP. PT CAN REMEMBER NAME AND PLACE BUT NOT DATES. PT FAMILY NOTIFIED OF CHANGE. NEW ORDERS ENTERED FOR PT AND NEURO EVALUATION. NO S/S OF DISTRESS. CALL LIGHT IN REACH. ALL SAFETY MEASURES IN PLACE. PT NO LONGER HAS IV ACCESS
--- NOTE | 2021-05-08 18:30 | NUR ---
PT STATED SHE WANTED TO LEAVE AND SAT UP IN BED BY HERSELF. ALONDRA PÉREZ SPOKE TO PT ABOUT POSSIBLE SNF PLACEMENT, PT BECAME AGITATED AND SAID "FUCK YOU". PT AGAIN FELL BACK AND BEGAN TO HAVE SMALL SPASM. PT STATED SHE WANTED TO SIGN HER DC PAPERWORK AND LEAVE. PT WAS UNABLE TO SIGN PAPERWORK. PT IS FORGETFUL AND HAVING TROUBLE STAYING ON TOPIC. PT STOOD HERSELF UP BUT COULD NOT STAY STANDING. PT NOTIFIED SHE WOULD NOT BE LEAVING TODAY. ATTEMPTED TO REACH FAMILY WITH NO SUCCESS. CALLED PT SON CYNDI [phone] AND PT SISTER ROGE [phone], LEFT MESSAGE
--- NOTE | 2021-05-08 19:53 | NUR ---
ENDORSED PT TO DOCUMENT SCANNER NURSE FOR CONTINUITY OF CARE PT WAS LYING ON EDGE OF BED WITH FEET DANGLING, DINNER AT BEDSIDE. PT WOULD NOT RESPOND TO VOICE OR TOUCH. PT RESPONDED TO PAIN AND PUSHED HANDS AWAY WITH STERNAL RUB. PT AWAKE AND STABLE.
--- NOTE | 2021-05-08 19:54 | NUR ---
RECD. RESTING IN BED, SEEMS TO BE LETHARGIC BUT ABLE TO WAKEN UP. VITAL SIGNS TAKEN AND WAS STABLE. RESPIRATION EVEN AND UNLABORED. NO IV LINE. ABLE TO AMBULATE BY HERSELF. DENIES PAIN 0/10.
--- NOTE | 2021-05-08 20:00 | NUR ---
Patient's Plan of Care was discussed and reviewed with MACHINE TOOL MECHANIC: BOBBI WHITLEY
--- NOTE | 2021-05-08 20:00 | NUR ---
Patient's Plan of Care was discussed and reviewed with DRAY TRUCK DRIVER: BOBBI WHITLEY
--- NOTE | 2021-05-08 22:00 | NUR ---
CHECKED PATIENT RESTING IN BED, TALKING TO SELF, SAYING NON-SENSE THINGS. REORIENTED TO HOSPITAL SETTING. REQUESTED DOOR TO BE CLOSED.
[2021-05-09] VITALS: BP 95/64
--- NOTE | 2021-05-09 | NUR ---
LAYING IN BED BUT HEAD ON THE BOTTOM PART OF THE BED, NO UNDERWEAR. WHEN INQUIRED IF SHE NEEDS UNDERWEAR STATED SHE WANTS TO GO HOME. UNDERWEAR GIVEN. STILL TALKING NONSENSE THINGS.
--- NOTE | 2021-05-09 02:00 | NUR ---
RESTING IN BED, NAKED. ADVISED TO PUT ON GOWN BUT JUST KEEP ON TALKING.
--- NOTE | 2021-05-09 04:00 | NUR ---
IN BED, TALKING TO SELF. THROWS SOME OF HER PAPERS ON THE FLOOR. ADVISED NOT TO DO SO. DOES NOT MIND AT ALL WHAT IS BEING SAID TO HER.
--- NOTE | 2021-05-09 06:30 | NUR ---
NAKED IN BED, PUT ON A NEW GOWN. NO DISTRESS NOTED. WILL ENDORSE TO AM SHIFT NURSE FOR CONTINUITY OF CARE.
[2021-05-09] MEDS: PANTOPRAZOLE 40 MG INJ VIAL IVP SCH (09:00)
[2021-05-09 09:28] LABS: ANION GAP 14.1 (8-16); CARBON DIOXIDE 26.9 mmol/L (21-32); CHLORIDE 105 mmol/L (98-107); CREATININE 0.8 mg/dL (0.6-1.3); GLUCOSE 98 mg/dL (74-106); SODIUM SERUM 142 mmol/L (136-145); UREA NITROGEN, BLOOD 12 mg/dL (7-18)
[2021-05-09] MEDS: GABAPENTIN 300 MG CAP PO SCH ×3 (09:47→17:41)
[2021-05-09] MEDS: MIRTAZAPINE 15 MG TAB PO SCH ×3 (09:48→17:41)
[2021-05-09] MEDS: BACLOFEN 10 MG TAB PO SCH ×3 (09:49→17:41)
[2021-05-09] MEDS: ENOXAPARIN 40 MG/0.4 ML SYR SUBQ SCH (09:53)
[2021-05-09 10:07] LABS: BASOPHILS # (AUTO) 0.1 K/uL (0.00-0.22); BASOPHILS % (AUTO) 0.5 % (0.0-2.0); EOSINOPHILS # (AUTO) 0.1 K/uL (0-0.4); EOSINOPHILS % (AUTO) 0.6 % (0.0-4.0); HEMATOCRIT 41.7 % (36-48); HEMOGLOBIN 13.9 g/dL (12.0-16.0); LYMPHOCYTES # (AUTO) 1.2 K/uL (2.5-16.5); LYMPHOCYTES % (AUTO) 8.2 % (20.5-51.1); MEAN CORPUSCULAR HEMOGLOBIN 30 pg (27-31); MEAN CORPUSCULAR HGB CONC 33 g/dL (33-37); MEAN CORPUSCULAR VOLUME 90.7 fL (80-94); MONOCYTES # (AUTO) 1.2 K/uL (0.8-1.0); MONOCYTES % (AUTO) 7.9 % (1.7-9.3); NEUTROPHILS # (AUTO) 12.5 K/uL (1.8-7.7); NEUTROPHILS % (AUTO) 82.8 % (42.2-75.2); PLATELET COUNT (AUTO) 363 K/uL (140-450); RED CELL DISTRIBUTION WIDTH 14.4 % (11.6-13.7)
[2021-05-09 12:00] VITALS: BP 135/87
--- NOTE | 2021-05-09 14:28 | NUR ---
PT STABLE, ENDORSED TO GRABIEL FOR CONTINUITY OF CARE.
--- NOTE | 2021-05-09 14:40 | NUR ---
ASSUMED CARE. PATIENT IN BED, NOT IN ANY DISTRESS NOTED. WILL CONTINUE TO MONITOR.
--- NOTE | 2021-05-09 16:00 | NUR ---
PATIENT RESTING IN BED, TALKING BY HERSELF, ROOM SCATTERED.WILL CONTINUE TO MONITOR.
--- NOTE | 2021-05-09 17:00 | NUR ---
DUE MEDICATION GIVEN AND REQUESTED TO PUT WATER AND ICE CHIPS BEFORE SHE TAKES THE MEDICATION. ABLE TO TAKE IT. WILL CONTINUE TO MONITOR.
--- NOTE | 2021-05-09 19:23 | NUR ---
REPORT GIVEN TO THE RADIOCOMMUNICATIONS TECHNICIAN FOR CONTINUITY OF CARE. IN STABLE CONDITION.
[2021-05-10] VITALS: BP 145/73
[2021-05-10 07:02] LABS: BASOPHILS # (AUTO) 0.1 K/uL (0.00-0.22); BASOPHILS % (AUTO) 0.7 % (0.0-2.0); EOSINOPHILS # (AUTO) 0.1 K/uL (0-0.4); EOSINOPHILS % (AUTO) 0.9 % (0.0-4.0); HEMATOCRIT 41.5 % (36-48); HEMOGLOBIN 13.6 g/dL (12.0-16.0); LYMPHOCYTES # (AUTO) 1.5 K/uL (2.5-16.5); LYMPHOCYTES % (AUTO) 11.7 % (20.5-51.1); MEAN CORPUSCULAR HEMOGLOBIN 30 pg (27-31); MEAN CORPUSCULAR HGB CONC 33 g/dL (33-37); MEAN CORPUSCULAR VOLUME 90.6 fL (80-94); MONOCYTES # (AUTO) 1.2 K/uL (0.8-1.0); MONOCYTES % (AUTO) 9.4 % (1.7-9.3); NEUTROPHILS # (AUTO) 9.8 K/uL (1.8-7.7); NEUTROPHILS % (AUTO) 77.3 % (42.2-75.2); PLATELET COUNT (AUTO) 334 K/uL (140-450); RED BLOOD CELL COUNT(AUTO) 4.57 MIL/uL (4.20-5.40); WHITE BLOOD COUNT (AUTO) 12.7 K/uL (4.8-10.8)
--- NOTE | 2021-05-10 07:25 | NUR ---
RECEIVED REPORT FROM CLINICAL PSYCHIATRIST NURSE FOR CONTINUITY OF CARE. PT RESPIRATIONS ARE EVEN AND UNLABORED. NO SIGNS OF DISTRESS NOTED. NO COMPLAINTS OF PAIN OR DISCOMFORT NOTED. CALL LIGHT WITHIN REACH. ALL SAFETY MEASURES IN PLACE. WILL CONTINUE TO MONITOR.
[2021-05-10 08:00] VITALS: BP 132/59
[2021-05-10 08:09] LABS: ANION GAP 14.3 (8-16); CARBON DIOXIDE 28.8 mmol/L (21-32); CHLORIDE 102 mmol/L (98-107); CREATININE 0.7 mg/dL (0.6-1.3); GLUCOSE 83 mg/dL (74-106); POTASSIUM 3.1 mmol/L (3.5-5.1); SODIUM SERUM 142 mmol/L (136-145); UREA NITROGEN, BLOOD 7 mg/dL (7-18)
[2021-05-10] MEDS: PANTOPRAZOLE 40 MG INJ VIAL IVP SCH (08:35)
[2021-05-10] MEDS: BACLOFEN 10 MG TAB PO SCH ×3 (08:35→17:42)
[2021-05-10] MEDS: MIRTAZAPINE 15 MG TAB PO SCH ×3 (08:36→17:42)
[2021-05-10] MEDS: GABAPENTIN 300 MG CAP PO SCH ×3 (08:36→17:42)
[2021-05-10] MEDS: ENOXAPARIN 40 MG/0.4 ML SYR SUBQ SCH (08:37)
--- NOTE | 2021-05-10 08:38 | NUR ---
ADMINISTERED ALL SCHEDULED MEDICATIONS. PT REQUESTED MEDS BE GIVEN WITH ICE. PT TOLERATED WELL. WILL CONTINUE TO MONITOR.
--- NOTE | 2021-05-10 12:15 | NUR ---
ASSISTED WITH CHANGING PT. PT YELLING AND SCREAMING. PULLING AT HER OWN HAIR. RE-ORIENTED PT. WILL CONTINUE TO MONITOR.
--- NOTE | 2021-05-10 14:29 | NUR ---
DC PLANNING: PER SW ASSESSMENT PATIENT UNASAFE TO RETURN HOME. CLINICAL PACKET FAXED TO [facility] FOR PLACEMENT, CM FOLLOWED UP WITH MOOKIE BOSCH ([phone]), STATES THAT HE MIGHT HAVE PLACEMENT AT [facility]. CM WILL FOLLOW.
[2021-05-10 16:00] VITALS: BP 157/75
--- NOTE | 2021-05-10 16:21 | NUR ---
OBSERVED PT YELLING AND THROWING HER PAD ON THE FLOOR. WENT OVER TO RE-ORIENTATE PT. CLEANED UP PT. WILL CONTINUE TO MONITOR.
--- NOTE | 2021-05-10 19:17 | NUR ---
ENDORSED PT TO MORTGAGE UNDERWRITER NURSE FOR CONTINUITY OF CARE. PT IS STABLE AT THIS TIME.
--- NOTE | 2021-05-10 19:22 | NUR ---
RECEIVED PT REPORT FROM AM NURSE FOR CONYINUITY OF CARE. PT AWAKE RESTING IN BED. NO C/O PAIN OR DISTRESS. STILL HAS NO IV ACCESS. REFUSES IV AND IV FLUIDS. PT IS DRINKING. ALL SAFETY MEASURES IN PLACE. WILL CONTINUE TO MONITOR.
[2021-05-10] MEDS: ACETAMINOPHEN 325 MG TAB PO PRN (22:19)
[2021-05-11] VITALS: BP 80/47
--- NOTE | 2021-05-11 07:45 | NUR ---
ENDORSED TO AM SHIFT PT REPORT FOR CONTINUITY OF CARE.
--- NOTE | 2021-05-11 07:57 | NUR ---
RECEIVED REPORT FROM GLOBAL MARKETING SPECIALIST FOR CONTINUITY OF CARE. PATIENT NOT IN ANY DISTRESS NOTED. NO IV ACCESS AT THIS TIME, REFUSED. BED IN LOW POSITION, CALL LIGHT WITHIN REACH. NEEDS ATTENDED. WILL CONTINUE TO MONITOR.
[2021-05-11 08:00] VITALS: BP 114/92
[2021-05-11] MEDS: GABAPENTIN 300 MG CAP PO SCH ×3 (08:28→17:01)
[2021-05-11] MEDS: MIRTAZAPINE 15 MG TAB PO SCH (08:28)
[2021-05-11] MEDS: BACLOFEN 10 MG TAB PO SCH ×3 (08:28→17:00)
[2021-05-11] MEDS: ENOXAPARIN 40 MG/0.4 ML SYR SUBQ SCH (08:29)
--- NOTE | 2021-05-11 08:30 | NUR ---
PATIENT TALKING BY HERSELF, REFUSED IV TO BE INSERTED. WILL CONTINUE TO MONITOR.
[2021-05-11] MEDS: PANTOPRAZOLE 40 MG TABEC PO SCH (08:31)
--- NOTE | 2021-05-11 10:00 | NUR ---
FOLLOW UP FOR PSYCH EVAL. LEFT MESSAGE TO PAIGE. WILL CONTINUE TO MONITOR.
--- NOTE | 2021-05-11 11:05 | NUR ---
PAIGE FROM PSYCH CALLED BACK AND SHE WILL NOTIFY DOCTOR FOR RE EVAL. WILL CONTINUE TO MONITOR.
--- NOTE | 2021-05-11 12:30 | NUR ---
PSYCH MD SPOKE TO THE PATIENT VIA ZOOM. AND WITH ORDER. WILL CONTINUE TO MONITOR.
--- NOTE | 2021-05-11 15:12 | NUR ---
PATIENT CALLED AND WHEN I WENT TO THE ROOM, SHE KEEPS MUMBLING WORDS. NOT IN DISTRESS NOTED. WILL CONTINUE TO MONITOR.
[2021-05-11 16:00] VITALS: BP 117/70
--- NOTE | 2021-05-11 19:23 | NUR ---
REPORT GIVEN TO THE SOFTWARE LEAD FOR CONTINUITY OF CARE. PATIENT IN STABLE CONDITION.
--- NOTE | 2021-05-11 19:24 | NUR ---
RECEIVED REPORT FROM MORNING SHIFT NURSE FOR CONTINUITY OF CARE. PATIENT IS STABLE IN BED. A&OX1 WITH CONFUSION. RE-ORIENTED PATIENT TO TIME, PLACE, AND DAY. DENIES PAIN. ON ROOM AIR. RESPIRATIONS EVEN AND UNLABORED WITH NO APPARENT S/SX OF ACUTE DISTRESS. SKIN IS INTACT. PATIENT IS INCONTINENT. PLAN OF CARE AND WHITE COMMUNICATION BOARD UPDATED. BED IN LOW/LOCKED POSITION. CALL LIGHT WITHIN REACH. WILL CONTINUE TO MONITOR.
--- NOTE | 2021-05-11 21:20 | NUR ---
ADMINISTERED SCHEDULED MEDICATIONS PER MD ORDER. TOLERATED WELL. NO ADVERSE REACTION NOTED. DENIES PAIN. RESPIRATIONS EVEN AND UNLABORED WITH NO APPARENT S/SX OF ACUTE DISTRESS. SNACKS PROVIDED. WHITE COMMUNICATION BOARD UPDATED. ALL SAFETY MEASURES IN PLACE. CALL LIGHT WITHIN REACH. WILL CONTINUE TO MONITOR.
[2021-05-11] MEDS: HALOPERIDOL 1 MG TAB PO SCH (21:34)
--- NOTE | 2021-05-11 23:20 | NUR ---
CHECKED PATIENT. STABLE AND ASLEEP. CHEST IS RISING AND FALLING EVENLY. RESPIRATIONS EVEN AND UNLABORED WITH NO APPARENT S/SX OF ACUTE DISTRESS. WHITE COMMUNICATION BOARD UPDATED. ALL SAFETY MEASURES IN PLACE. CALL LIGHT WITHIN REACH. WILL CONTINUE TO MONITOR.
--- NOTE | 2021-05-12 01:20 | NUR ---
PATIENT IS AWAKE AND STABLE. RE-ORIENTED TO TIME, PLACE, AND DAY. DENIES PAIN. RESPIRATIONS EVEN AND UNLABORED WITH NO APPARENT S/SX OF ACUTE DISTRESS. WHITE COMMUNICATION BOARD UPDATED. ALL SAFETY MEASURES IN PLACE. CALL LIGHT WITHIN REACH. WILL CONTINUE TO MONITOR.
--- NOTE | 2021-05-12 03:20 | NUR ---
ROUNDED ON PATIENT. STABLE AND ASLEEP. CHEST IS RISING AND FALLING EVENLY. RESPIRATIONS EVEN AND UNLABORED WITH NO APPARENT S/SX OF ACUTE DISTRESS. WHITE COMMUNICATION BOARD UPDATED. ALL SAFETY MEASURES IN PLACE. CALL LIGHT WITHIN REACH. WILL CONTINUE TO MONITOR.
[2021-05-12 04:00] VITALS: BP 115/69
--- NOTE | 2021-05-12 05:20 | NUR ---
PATIENT IS AWAKE AND STABLE. RE-ORIENTED TO TIME, PLACE, AND DAY. RESPIRATIONS EVEN AND UNLABORED WITH NO APPARENT S/SX OF ACUTE DISTRESS. WHITE COMMUNICATION BOARD UPDATED. ALL SAFETY MEASURES IN PLACE. CALL LIGHT WITHIN REACH. WILL CONTINUE TO MONITOR.
--- NOTE | 2021-05-12 07:08 | NUR ---
ENDORSED PATIENT TO MORNING SHIFT NURSE FOR CONTINUITY OF CARE. PATIENT IS STABLE.
--- NOTE | 2021-05-12 07:43 | NUR ---
RECEIVED REPORT FROM COOK CASHIER FOOD PREP FOR CONTINUITY OF CARE. PATIENT RESTING IN BED. NOT IN ANY DISTRESS NOTED. INITIAL ASSESSMENT INITIATED. BED IN LOW POSITION. CALL LIGHT WITHIN REACH. NEEDS ATTENDED. WILL CONTINUE TO MONITOR.
--- NOTE | 2021-05-12 07:49 | NUR ---
Patient's Plan of Care was discussed and reviewed with WAREHOUSE LOGISTICS MANAGER: DERICK /Jordan UP RN
[2021-05-12 08:00] VITALS: BP 107/47
[2021-05-12 08:09] LABS: BASOPHILS # (AUTO) 0.1 K/uL (0.00-0.22); EOSINOPHILS # (AUTO) 0.2 K/uL (0-0.4); EOSINOPHILS % (AUTO) 1.8 % (0.0-4.0); HEMOGLOBIN 12.6 g/dL (12.0-16.0); LYMPHOCYTES % (AUTO) 18.1 % (20.5-51.1); MEAN CORPUSCULAR HEMOGLOBIN 30 pg (27-31); MEAN CORPUSCULAR HGB CONC 33 g/dL (33-37); MEAN CORPUSCULAR VOLUME 90.9 fL (80-94); MONOCYTES # (AUTO) 0.9 K/uL (0.8-1.0); MONOCYTES % (AUTO) 7.9 % (1.7-9.3); NEUTROPHILS # (AUTO) 7.8 K/uL (1.8-7.7); NEUTROPHILS % (AUTO) 71.2 % (42.2-75.2); PLATELET COUNT (AUTO) 360 K/uL (140-450); RED BLOOD CELL COUNT(AUTO) 4.19 MIL/uL (4.20-5.40); RED CELL DISTRIBUTION WIDTH 14.1 % (11.6-13.7); WHITE BLOOD COUNT (AUTO) 10.9 K/uL (4.8-10.8)
[2021-05-12 08:50] LABS: ANION GAP 15.2 (8-16); CARBON DIOXIDE 26.7 mmol/L (21-32); CHLORIDE 105 mmol/L (98-107); CREATININE 0.9 mg/dL (0.6-1.3); GLUCOSE 84 mg/dL (74-106); POTASSIUM 3.9 mmol/L (3.5-5.1); SODIUM SERUM 143 mmol/L (136-145); UREA NITROGEN, BLOOD 13 mg/dL (7-18)
--- NOTE | 2021-05-12 09:00 | NUR ---
PATIENT REFUSED TO TAKE MEDICINE, EXPLAINED THE RISK AND UNABLE TO COMPREHEND. KEEPS TALKING ABOUT HER SISTER AND MUMBLING EVERY NOW AND THEN.
[2021-05-12] MEDS: GABAPENTIN 300 MG CAP PO SCH ×3 (09:05→16:36)
[2021-05-12] MEDS: ENOXAPARIN 40 MG/0.4 ML SYR SUBQ SCH (09:06)
[2021-05-12] MEDS: PANTOPRAZOLE 40 MG TABEC PO SCH (09:06)
[2021-05-12] MEDS: BACLOFEN 10 MG TAB PO SCH ×3 (09:06→16:36)
--- NOTE | 2021-05-12 11:00 | NUR ---
CLYDE MEDIA PROFESSIONAL FROM HER INSURANCE CALLED AND GIVE UPDATE. SHE SAID TO ORDER RAPID. WILL CONTINUE TO MONITOR.
--- NOTE | 2021-05-12 13:23 | NUR ---
PATIENT REFUSED TO EAT AND TAKE HER MEDICATIONS. PATIENT THROW HER TRY AND MEDICATIONS. WILL CONTINUE TO MONITOR.
--- NOTE | 2021-05-12 14:26 | NUR ---
05/12/21 RD FOLLOW UP COMPLETED PLEASE REFER TO NUTRITION PROGRESS NOTE UNDER CARE ACTIVITY FOR ESTIMATED NUTRITION NEEDS. RD RECOMMENDATIONS: 1. CONTINUE MECHANICAL SOFT DIET. -WILL ADD ENSURE BID PER PROTOCOL TO OPTIMIZE NUTRITION INTAKE 2. ENCOURAGE ORAL INTAKE 3. IF PTS PO INTAKE DOES IMPROVE, CONSIDER CHANGING PTS DIET TO LOW NA DIET 4. RD TO FOLLOW-UP 2-3 DAYS; HIGH RISK TYLER ROB, RD
[2021-05-12 16:00] VITALS: BP 125/75
--- NOTE | 2021-05-12 18:00 | NUR ---
PATIENT ABLE TO TAKE HER MEDICATIONS. DENIES PAIN AT THIS TIME. WILL CONTINUE TO MONITOR.
--- NOTE | 2021-05-12 19:00 | NUR ---
REPORT GIVEN TO THE PURCHASING ENGINEER FOR CONTINUITY OF CARE.
[2021-05-12 20:00] VITALS: BP 118/71
[2021-05-12] MEDS: HALOPERIDOL 1 MG TAB PO SCH (21:24)
--- NOTE | 2021-05-12 23:15 | NUR ---
CLEANED AND CHANGED PATIENT. TOLERATED WELL. DENIES PAIN. RESPIRATIONS EVEN AND UNLABORED WITH NO APPARENT S/SX OF ACUTE DISTRESS. WHITE COMMUNICATION BOARD UPDATED. ALL SAFETY MEASURES IN PLACE. CALL LIGHT WITHIN REACH. WILL CONTINUE TO MONITOR.
--- NOTE | 2021-05-12 23:34 | NUR ---
Patient's Plan of Care was discussed and reviewed with CITY ADMINISTRATOR: DERICK JEAN
[2021-05-13 04:00] VITALS: BP 115/85
[2021-05-13] MEDS: ACETAMINOPHEN 325 MG TAB PO PRN (05:48)
--- NOTE | 2021-05-13 07:15 | NUR ---
ENDORSED PATIENT TO MORNING SHIFT NURSE FOR CONTINUITY OF CARE. PATIENT IS STABLE.
--- NOTE | 2021-05-13 07:16 | NUR ---
RECEIVED BEDSIDE REPORT FROM REED OR WIND INSTRUMENT TUNER NURSE. PT IS NOT SHOWING S/S OF DISTRESS. BREATHING IS EVEN AND UNLABORED. PT IS UPSET AND STATES SHE IS TIRED OF WAITING AND WANTS TO LEAVE.
[2021-05-13] MEDS: ENOXAPARIN 40 MG/0.4 ML SYR SUBQ SCH (09:00)
[2021-05-13] MEDS: GABAPENTIN 300 MG CAP PO SCH (09:00)
[2021-05-13] MEDS: PANTOPRAZOLE 40 MG TABEC PO SCH (09:00)
[2021-05-13] MEDS: BACLOFEN 10 MG TAB PO SCH (09:00)
--- NOTE | 2021-05-13 10:10 | NUR ---
PT SIGNED AN AMA FORM SINCE THEY WANT TO LEAVE AGAINST MEDICAL ADVICE AND DO NOT WISH TO BE SEEN BY DOCTOR OF TRANSFER TO SNF. PT IS AOX4 BUT IS UPSET AND SECURITY HELPED THEM WITH THEIR SHOES AND NO IVS WERE ON PT OT TELE MONITOR. INFORMED PT TO RETURN TO ED IF THEIR SYMPTOMS WORSEN. PT LEFT AGAINST MEDICAL ADVISE.
== END 2021-05-13 10:07 | disposition left against medical advice (07) | DRG 389 ==
LOC: MED 08:12 → MTU 04-30 13:27
PROVIDERS: ADMIT Internal Medicine; ATTEND Internal Medicine
DX: K56.51 Intestinal adhesions [bands], with partial obstruction (principal); K92.0 Hematemesis; J45.909 Unspecified asthma, uncomplicated; Z20.822 Contact with and (suspected) exposure to COVID-19; K56.7 Ileus, unspecified; I10 Essential (primary) hypertension; Z91.041 Radiographic dye allergy status; Z79.899 Other long term (current) drug therapy
CPT/HCPCS: 36415; 70450; 71045; 72110; 73502; 74250; 80048; 80053; 81003; 82948; 83690; 84484; 85025; 93005; 97112; 97163-GP; 97530; C9113; J1630; J1650; J2270; J2405; J2543; J7060